=== PATIENT | female | born 1930 | race Caucasian/White ===

== ENCOUNTER 2017-01-21 12:40 | Inpatient (IN) | payer MEDICARE, OTHER ==
--- NOTE | 2017-01-21 13:11 | ED Physician Chart ---
ED Chief Complaint/HPI - Patient Information Date Seen:: 01/21/17 Time Seen:: 13:00 Chief Complaint:: PSYCHOSIS History of Present Illness:: THIS IS AN 86 YO FEMALE WHO WAS SENT HERE FROM THE [facility] FOR AN EVALUATION AND TREATMENT OF HER CONDITION. SHE HAS HAD OUTBURST OF ANGER INTERMITTENTLY. Allergies:: Allergies Allergy/AdvReac Type Severity Reaction Status Date / Time codeine AdvReac Verified 01/21/17 12:51 metronidazole AdvReac Verified 01/21/17 12:51 nitrofurantoin AdvReac Verified 01/21/17 12:51 Sulfa (Sulfonamide AdvReac Verified 01/21/17 12:51 Antibiotics) Vitals:: Vital Signs - 8 hr 01/21/17 12:51 Temp 99.0 F HR 76 RR 16 BP 142/88 O2 Sat % 97 Historian:: Patient, EMS, Medical Records Review:: Nurse's Note Reviewed, Transfer documents Reviewed ED Review of Systems - Review of Systems General/Constitutional: No fever, No chills, No weight loss, No weakness, No diaphoresis, No edema, No loss of appetite, Other (THIS PATIENT IS UNABLE TO GIVE A REVIEW OF SYSTEMS) Skin: No skin lesions, No rash, No bruising Head: No headache, No light-headedness Eyes: No loss of vision, No pain, No diplopia ENT: No earache, No nasal drainage, No sore throat, No tinnitus Neck: No neck pain, No swelling, No thyromegaly, No stiffness, No mass noted Cardio Vascular: No chest pain, No palpitations, No PND, No orthopnea, No edema Pulmonary: No SOB, No cough, No sputum, No wheezing GI: No nausea, No vomiting, No diarrhea, No pain, No melena, No hematochezia, No constipation, No hematemesis G/U: No dysuria, No frequency, No hematuria Musculoskeletal: No bone or joint pain, No back pain, No muscle pain Endocrine: No polyuria, No polydipsia Psychiatric: No prior psych history, No depression, No anxiety, No suicidal ideation Hematopoietic: No bruising, No lymphadenopathy Allergic/Immuno: No urticaria, No angioedema Neurological: No syncope, No focal symptoms, No weakness, No paresthesia, No headache, No seizure, No dizziness, No confusion, No vertigo ED Past Medical History - Past Medical History Obtainable: Yes Past Medical History: Dyslipidemia, Thyroid disorder, Arthritis, Dementia Family History: None Social History: Non Smoker, No Alcohol, No Drug Use Surgical History: None Psychiatricy History: Depression, Dementia Medication: Reviewed Family Medical History - Family Member Mother History Unknown: Yes ED Physical Exam - Physical Examination General/Constitutional: Awake, Well-developed, well-nourished, Alert, No distress, GCS 15, Non-toxic appearing, Ambulatory Other Gen/Cons comments:: CONFUSED Head: Atraumatic Eyes: Lids, conjuctiva normal, PERRL, EOMI Skin: Nl inspection, No rash, No skin lesions, No ecchymosis, Well hydrated, No lymphadenopathy ENMT: External ears, nose nl, Nasal exam nl, Lips, teeth, gums nl Neck: Nontender, Full ROM w/o pain, No JVD, No nuchal rigidity, No bruit, No mass, No stridor Respiratory: Nl effort/Exclusion, Clear to Auscultation, No Wheeze/Rhonchi/Rales Cardio Vascular: RRR, No murmur, gallop, rubs, NL S1 S2 GI: No tenderness/rebounding/guarding, No organomegaly, No hernia, Normal BS's, Nondistended, No mass/bruits, No McBurney tenderness : No CVA tenderness Extremities: No tenderness or effusion, Full ROM, normal strength in all extremities, No edema, Normal digits & nails Neuro/Psych: Alert/oriented, DTR's symmetric, Normal sensory exam, Normal motor strength, Judgement/insight normal, Mood normal, Normal gait, No focal deficits Misc: normal gait, Normal back, No paraspinal tenderness ED Labs/Radiology/EKG Results - EKG Interpretations EKG Time:: 12:51 Rate & Rhythm: RATE= 67 [place]: RIGHT AXIS ED Assessment - Assessment General Assessment: Abnormal Lab Results 01/21/17 01/21/17 01/21/17 13:00 13:00 13:00 WBC 6.2 RBC 4.78 Hgb 14.3 Hct 43.4 MCV 90.8 MCH 29.8 MCHC Differential 32.8 RDW 12.2 Plt Count 202 MPV 7.8 Neutrophils % 54.8 Lymphocytes % 28.3 Monocytes % 12.4 H Eosinophils % 3.9 Basophils % 0.6 PT 9.9 INR 0.95 Sodium Potassium Chloride Carbon Dioxide Anion Gap BUN Creatinine Est GFR ( Amer) Est GFR (Non-Af Amer) BUN/Creatinine Ratio Glucose Calcium Total Bilirubin AST ALT Alkaline Phosphatase Total Protein Albumin Globulin Albumin/Globulin Ratio Triglycerides 206 H Cholesterol 219 H LDL Cholesterol Direct 153 HDL Cholesterol 56 01/21/17 13:00 WBC RBC Hgb Hct MCV MCH MCHC Differential RDW Plt Count MPV Neutrophils % Lymphocytes % Monocytes % Eosinophils % Basophils % PT INR Sodium 136 Potassium 4.2 Chloride 103 Carbon Dioxide 28.5 Anion Gap 8.7 BUN 15 Creatinine 0.6 Est GFR ( Amer) TNP Est GFR (Non-Af Amer) TNP BUN/Creatinine Ratio 25.0 Glucose 81 Calcium 9.3 Total Bilirubin 0.7 AST 33 ALT 23 Alkaline Phosphatase 106 H Total Protein 7.1 Albumin < 1.5 L Globulin 5.6 Albumin/Globulin Ratio 0.3 L Triglycerides Cholesterol LDL Cholesterol Direct HDL Cholesterol ED Septic Shock - . Is Septic Shock (SBP<90, OR Lactate>4 mmol\L) present?: No - <6hrs of presentation: Vital Signs: Vital Signs - 8 hr 01/21/17 12:51 Temp 99.0 F HR 76 RR 16 BP 142/88 O2 Sat % 97 ED Reassessment (Disposition) - Reassessment Reassessment Condition:: Unchanged - Diagnosis Diagnosis:: PSYCHOSIS - Patient Disposition Admitting Medical Physician:: Regino Hinton Admitting Psych Physician:: Dana Perez Condition at Disposition:: Unchanged ED Discharge Plan - Patient Disposition Admit/Discharge/Transfer: Acute Care w/in this hosp Instructions: Psychosis
[2017-01-21 13:15] LABS: % BASOPHILS 0.6 % (0.0-2.0); % EOSINOPHILS 3.9 % (0.0-5.0); % LYMPHOCYTES 28.3 % (20.0-50.0); % MONOCYTES 12.4 % (2.0-10.0); % NEUTROPHILS 54.8 % (40.0-80.0); HEMATOCRIT 43.4 % (41.0-60); HEMOGLOBIN 14.3 gm/dL (12-16); MEAN CELL VOLUME 90.8 fl (81-100); MEAN CORPUSCULAR HEMOGLOBIN 29.8 pg (27.0-31.0); MEAN CORPUSCULAR HGB CONC 32.8 pg (28.0-36.0); MEAN PLATELET VOLUME 7.8 fl; NEUTROPHILE ABSOLUTE 3.4 Th/cmm (1.8-8.0); PLATELET COUNT 202 Th/cmm (150-400); RED BLOOD COUNT 4.78 Mil/cmm (3.80-5.20); RED CELL DISTRIBUTION WIDTH 12.2 % (11.5-20.0); WHITE BLOOD COUNT 6.2 Th/cmm (4.8-10.8)
[2017-01-21 13:29] LABS: INR 0.95 (0.5-1.4); PROTHROMBIN TIME (TEST) 9.9 SECONDS (9.5-11.5)
[2017-01-21 13:38] LABS: ALB/GLOB RATIO 0.3 (1.0-1.8); ALKALINE PHOSPHATASE 106 U/L (34-104); ANION GAP 8.7 (7.0-16.0); BILIRUBIN,TOTAL 0.7 mg/dL (0.3-1.0); BUN - UREA NITROGEN 15 mg/dL (7-25); CALCIUM SERUM 9.3 mg/dL (8.6-10.3); CARBON DIOXIDE 28.5 mEq/L (21.0-31.0); CHLORIDE 103 mEq/L (98-107); CHOLESTEROL 219 mg/dL (<200); CREATININE - SERUM 0.6 mg/dL (0.6-1.2); GLUCOSE 81 mg/dL (70-105); POTASSIUM SERUM 4.2 mEq/L (3.5-5.1); SGOT 33 U/L (13-39); SGPT/ALT 23 U/L (7-52); SODIUM SERUM 136 mEq/L (136-145); TRIGLYCERIDES 206 mg/dL (<150)
[2017-01-21 13:50] LABS: URINE BILIRUBIN NEGATIVE (NEGATIVE); URINE BLOOD NEGATIVE (NEGATIVE); URINE GLUCOSE (UA) NEGATIVE (NEGATIVE); URINE KETONE NEGATIVE (NEGATIVE); URINE PH 5.5 (4.6 - 8.0); URINE PROTEIN NEGATIVE (NEGATIVE); URINE UROBILINOGEN 0.2 E.U./dL (0.2 - 1.0)
[2017-01-21 14:00] LABS: URINE COLOR YELLOW
[2017-01-21 14:11] LABS: URINE BACTERIA OCCASIONAL /hpf (NONE SEEN); URINE EPITHELIAL CELLS FEW /lpf (FEW); URINE RBC 0-2 /hpf (0-5)
--- NOTE | 2017-01-21 15:00 | Diagnostic Imaging Report ---
Exam: Chest x-ray HISTORY: Shortness of breath. Findings: Frontal examination of chest was reviewed no prior studies available for comparison. Bony thorax is unremarkable for degenerative changes. The aortic arch calcified. No acute pulmonic infiltrates or effusions are noted. Multiple metallic clips are noted in left axilla. The costophrenic angles are clear, IMPRESSION: 1. No acute disease.
[2017-01-21] MEDS ORDERED: Magnesium Hydroxide (MOM) 30 mL UDC PO PRN (20:01)
[2017-01-21] MEDS: Lactulose 10 Gm/15 mL 30mL UDC PO SCH (23:22)
--- NOTE | 2017-01-22 01:31 | Psychosocial Evaluation ---
DATE OF SERVICE: 01/21/2017 IDENTIFYING DATA: The patient is an 86-year-old woman, resident of [facility]. Information obtained by directly interviewing the patient as well as reviewing the admission papers and they are reliable. JUSTIFICATION OF HOSPITALIZATION: The patient is admitted here for acute agitation. CHIEF COMPLAINT: "I do not know why they had to bring me in here." HISTORY OF PRESENT ILLNESS: This is the first psychiatric hospitalization to the [facility] for this patient who is reported to have been out of control and has been screaming and yelling and has been having difficult time to calm down. The patient has to referred. The patient was medically cleared through the Emergency Room and has been admitted over here for stabilization. PAST PSYCHIATRIC HISTORY: Details are not known. MEDICAL HISTORY: Physical examination requested to be done by Dr. Hinton. SUBSTANCE ABUSE HISTORY: None. PHYSICAL OR SEXUAL ABUSE HISTORY: None. SOCIAL HISTORY: The patient is a resident of the long term facility. MENTAL STATUS EXAMINATION: The patient is an 86-year-old woman looking her stated age, superficially cooperative. Eye contact is poor. Mood is noted to be irritable. Affect is constricted. Insight and judgment are noted to be impaired. Impulse control seems to be limited. The patient's coping skills are also noted to be limited. The patient has been having difficult time to participate in the consultation. The patient is having both short term as well as continuous churn buttermaker memory deficits. The patient is perseverating at this time. The patient is not able to recall the three objects that are mentioned to her after 5 minutes. The patient's attention span and concentration are noted to be poor. The patient is stating that she has to go back and she could not figure it out why she had to be brought over here. The patient is getting easily agitated and anxious. DIAGNOSTIC IMPRESSION: AXIS I: Psychotic disorder, not otherwise specified. AXIS IB: Depressive disorder, not otherwise specified. AXIS II: None. AXIS III: As per Dr. Hinton. IMMEDIATE TREATMENT PLAN: The patient is going to be observed on the inpatient unit, provided with supportive psychotherapy. Once the patient is stabilized, she is going to be discharged back to the facility. The patient is going to be closely monitored and medications are going to be addressed. [facility]# [id number]
[2017-01-22 02:24] VITALS: BP 137/70
[2017-01-22] MEDS ORDERED: VIT K2 PO SCH (09:00)
[2017-01-22] MEDS ORDERED: CHOLECALCIFEROL PO SCH (09:00)
[2017-01-22] MEDS ORDERED: [UNRECOGNIZED DRUG - OTHER] PO SCH (09:00)
[2017-01-22] MEDS ORDERED: [UNRECOGNIZED DRUG - REMARK] PO SCH (09:00)
[2017-01-22] MEDS: Aspirin 81mg Chewable Tab PO SCH (09:55)
[2017-01-22] MEDS: Potassium Chloride 10 mEq ER Tab PO SCH (09:59)
[2017-01-22] MEDS: Pantoprazole 40 mg EC Tab PO SCH (09:59)
[2017-01-22] MEDS: APAP/Oxycodone 5/325mg Oral Tab PO PRN (11:56)
--- NOTE | 2017-01-22 15:14 | History and Physical ---
History of Present Illness - HPI Chief Complaint: Increased in agitation HPI: Patient is a permanent resident of a residential. She was send to [facility] for evaluation due to increased in agitation. 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 GI: Report: No Pertinent Hx Psych: Report: Psychosis Musculoskeletal: Report: Weakness Rheumatologic: Report: No pertinent Hx Infectious Disease: Report: No Pertinent Hx Renal/: Report: No Pertinent Hx Endocrine: Report: No Pertinent Hx Dermatology: Report: No Pertinent Hx Family Medical History - Family Member Mother History Unknown: Yes Social History Smoke: No Alcohol: None Drugs: None Lives: [place] Domestic Violence: Negative - Medications Home Medications: Home Medication Medication Instructions Recorded Type Aspirin [Aspirin Chewable] 81 mg PO DAILY 01/21/17 History B6/FA/B12/Co Q10/Herb No.225 1 each PO DAILY 01/21/17 History [Healthy Heart Complex Tablet] Buspirone HCl 10 mg PO BID 01/21/17 History Cholecalciferol (Vitd3)/Vit K2 [D3 1 each PO DAILY 01/21/17 History + K2 Dots 1,000 Units Tab] Dexlansoprazole [Dexilant] 30 mg PO DAILY 01/21/17 History Docusate Sodium [Colace] 100 mg PO DAILY 01/21/17 History Duloxetine HCl [Cymbalta] 60 mg PO DAILY 01/21/17 History Folic Acid [Folate*] 1 mg PO DAILY 01/21/17 History Furosemide [Lasix] 20 mg PO DAILY 01/21/17 History Gabapentin [Neurontin] 600 mg PO QID 01/21/17 History Lactulose 10 gm PO HS 01/21/17 History Lorazepam [Ativan] 1 mg PO Q12H PRN 01/21/17 History Losartan Potassium [Cozaar] 25 mg PO DAILY 01/21/17 History Magnesium Hydroxide [Milk of 30 ml PO Q6HR PRN 01/21/17 History Magnesia] Methimazole [Tapazole] 5 mg PO DAILY 01/21/17 History Oxybutynin Chloride [Ditropan Xl] 5 mg PO HS 01/21/17 History Oxycodone HCl/Acetaminophen 1 tab PO QID PRN 01/21/17 History [Percocet 325 mg-10 mg*] Potassium Chloride [Klor-Con 10] 1 tab PO DAILY 01/21/17 History Primidone [Mysoline] 50 mg PO HS 01/21/17 History Propranolol HCl [Inderal] 20 mg PO BID 01/21/17 History rOPINIRole HCL [Requip] 1 mg PO HS 01/21/17 History - Allergies Allergies/Adverse Reactions: Allergies Allergy/AdvReac Type Severity Reaction Status Date / Time codeine AdvReac Verified 01/21/17 12:51 metronidazole AdvReac Verified 01/21/17 12:51 nitrofurantoin AdvReac Verified 01/21/17 12:51 Sulfa (Sulfonamide AdvReac Verified 01/21/17 12:51 Antibiotics) Review of Systems - Review of Systems Constitutional: Report: No Significant Eyes: Report: No Significant ENT: Report: No Significant Respiratory: Report: No Significant Cardiovascular: Report: No Significant Gastrointestinal: Report: No Significant Genitourinary: Report: No Significant Musculoskeletal: Report: Leg Pain Skin: Report: Other (Redness of both lower extremities) Neurological: Report: Weakness, Confusion Physical Exam - Physical Exam HEENT: Report: Ears Nose Throat within normal limits Neck: Report: Within normal limits Cardiovascular Systems: Report: Regular, Rate and Rhythm Respiratory: Report: Breath Sounds are within normal limits Abdomen: Report: Non-tender to palpation Back: Report: Inspection of back is within normal limits. Extremities: Report: Calf tenderness was noted. (There are redness of both lower extremities) Neuro/Psych: Report: Disoriented to name time or place, Depressed affect - Lab Results All Lab Results last 24 hours: Laboratory Last Values WBC 6.2 Th/cmm (4.8-10.8) 01/21/17 13:00 RBC 4.78 Mil/cmm (3.80-5.20) 01/21/17 13:00 Hgb 14.3 gm/dL (12-16) 01/21/17 13:00 Hct 43.4 % (41.0-60) 01/21/17 13:00 MCV 90.8 fl (81-100) 01/21/17 13:00 MCH 29.8 pg (27.0-31.0) 01/21/17 13:00 MCHC Differential 32.8 pg (28.0-36.0) 01/21/17 13:00 RDW 12.2 % (11.5-20.0) 01/21/17 13:00 Plt Count 202 Th/cmm (150-400) 01/21/17 13:00 MPV 7.8 fl 01/21/17 13:00 Neutrophils % 54.8 % (40.0-80.0) 01/21/17 13:00 Lymphocytes % 28.3 % (20.0-50.0) 01/21/17 13:00 Monocytes % 12.4 % (2.0-10.0) H 01/21/17 13:00 Eosinophils % 3.9 % (0.0-5.0) 01/21/17 13:00 Basophils % 0.6 % (0.0-2.0) 01/21/17 13:00 PT 9.9 SECONDS (9.5-11.5) 01/21/17 13:00 INR 0.95 (0.5-1.4) 01/21/17 13:00 Sodium 136 mEq/L (136-145) 01/21/17 13:00 Potassium 4.2 mEq/L (3.5-5.1) 01/21/17 13:00 Chloride 103 mEq/L (98-107) 01/21/17 13:00 Carbon Dioxide 28.5 mEq/L (21.0-31.0) 01/21/17 13:00 Anion Gap 8.7 (7.0-16.0) 01/21/17 13:00 BUN 15 mg/dL (7-25) 01/21/17 13:00 Creatinine 0.6 mg/dL (0.6-1.2) 01/21/17 13:00 Est GFR ( Amer) TNP 01/21/17 13:00 Est GFR (Non-Af Amer) TNP 01/21/17 13:00 BUN/Creatinine Ratio 25.0 01/21/17 13:00 Glucose 81 mg/dL (70-105) 01/21/17 13:00 Calcium 9.3 mg/dL (8.6-10.3) 01/21/17 13:00 Total Bilirubin 0.7 mg/dL (0.3-1.0) 01/21/17 13:00 AST 33 U/L (13-39) 01/21/17 13:00 ALT 23 U/L (7-52) 01/21/17 13:00 Alkaline Phosphatase 106 U/L (34-104) H 01/21/17 13:00 Troponin I ng/mL (0.01-0.05) 01/21/17 13:00 Total Protein 7.1 gm/dL (6.0-8.3) 01/21/17 13:00 Albumin < 1.5 gm/dL (3.7-5.3) L 01/21/17 13:00 Globulin 5.6 gm/dL 01/21/17 13:00 Albumin/Globulin Ratio 0.3 (1.0-1.8) L 01/21/17 13:00 Triglycerides 206 mg/dL (<150) H 01/21/17 13:00 Cholesterol 219 mg/dL (<200) H 01/21/17 13:00 LDL Cholesterol Direct 153 mg/dL (75-193) 01/21/17 13:00 HDL Cholesterol 56 mg/dL (23-92) 01/21/17 13:00 TSH 2.13 uIU/ml (0.34-5.60) 01/21/17 13:00 Urine Source CLEAN C 01/21/17 13:15 Urine Color YELLOW 01/21/17 13:15 Urine Clarity HAZY (CLEAR) 01/21/17 13:15 Urine pH 5.5 (4.6 - 8.0) 01/21/17 13:15 Ur Specific [place] 1.015 (1.005-1.030) 01/21/17 13:15 Urine Protein NEGATIVE mg/dL (NEGATIVE) 01/21/17 13:15 Urine Glucose (UA) NEGATIVE mg/dL (NEGATIVE) 01/21/17 13:15 Urine Ketones NEGATIVE mg/dL (NEGATIVE) 01/21/17 13:15 Urine Blood NEGATIVE (NEGATIVE) 01/21/17 13:15 Urine Nitrate NEGATIVE (NEGATIVE) 01/21/17 13:15 Urine Bilirubin NEGATIVE (NEGATIVE) 01/21/17 13:15 Urine Urobilinogen 0.2 E.U./dL (0.2 - 1.0) 01/21/17 13:15 Ur Leukocyte Esterase NEGATIVE (NEGATIVE) 01/21/17 13:15 Urine RBC 0-2 /hpf (0-5) 01/21/17 13:15 Urine WBC 2-5 /hpf (0-5) 01/21/17 13:15 Ur Epithelial Cells FEW /lpf (FEW) 01/21/17 13:15 Urine Bacteria OCCASIONAL /hpf (NONE SEEN) 01/21/17 13:15 - Assessment Assessment: Patint is awake, alert, calm, not oriented. She refer pain in both legs. DX: increased in agitation, Dementia, Dyslipemia, Hyperthyroidism by history,. - Plan Plan: Continue with SNF meds. Under psychiatric care. US of both legs is requested.
[2017-01-22] MEDS: Oxybutynin Chloride 5 mg ER Tab PO SCH (20:53)
[2017-01-22] MEDS: Lactulose 10 Gm/15 mL 30mL UDC PO SCH (20:53)
[2017-01-23 06:29] LABS: ALB/GLOB RATIO 1.3 (1.0-1.8); ALKALINE PHOSPHATASE 107 U/L (34-104); BILIRUBIN,TOTAL 0.8 mg/dL (0.3-1.0); BUN - UREA NITROGEN 15 mg/dL (7-25); CALCIUM SERUM 9.2 mg/dL (8.6-10.3); CARBON DIOXIDE 26.5 mEq/L (21.0-31.0); CHLORIDE 105 mEq/L (98-107); CREATININE - SERUM 0.6 mg/dL (0.6-1.2); GLUCOSE 108 mg/dL (70-105); POTASSIUM SERUM 3.5 mEq/L (3.5-5.1); SGOT 20 U/L (13-39); SGPT/ALT 25 U/L (7-52); SODIUM SERUM 138 mEq/L (136-145)
[2017-01-23 06:55] LABS: % BASOPHILS 0.5 % (0.0-2.0); % EOSINOPHILS 1.4 % (0.0-5.0); % LYMPHOCYTES 28.9 % (20.0-50.0); % MONOCYTES 11.3 % (2.0-10.0); % NEUTROPHILS 57.9 % (40.0-80.0); HEMATOCRIT 45.6 % (41.0-60); MEAN CELL VOLUME 90.7 fl (81-100); MEAN CORPUSCULAR HEMOGLOBIN 29.9 pg (27.0-31.0); MEAN CORPUSCULAR HGB CONC 32.9 pg (28.0-36.0); MEAN PLATELET VOLUME 8.2 fl; NEUTROPHILE ABSOLUTE 3.9 Th/cmm (1.8-8.0); PLATELET COUNT 196 Th/cmm (150-400); RED BLOOD COUNT 5.03 Mil/cmm (3.80-5.20); RED CELL DISTRIBUTION WIDTH 12.3 % (11.5-20.0); WHITE BLOOD COUNT 6.7 Th/cmm (4.8-10.8)
[2017-01-23] MEDS: Potassium Chloride 10 mEq ER Tab PO SCH (09:16)
[2017-01-23] MEDS: Pantoprazole 40 mg EC Tab PO SCH (09:17)
[2017-01-23] MEDS: Aspirin 81mg Chewable Tab PO SCH (09:19)
[2017-01-23] MEDS: APAP/Oxycodone 5/325mg Oral Tab PO PRN (09:51)
--- NOTE | 2017-01-23 10:19 | General Progress Note ---
Subjective - Review of Systems Service Date: 01/23/17 Subjective: I am fine Objective - Results Result Diagrams: 01/23/17 05:49 01/23/17 05:49 Recent Labs: Laboratory Last Values WBC 6.7 Th/cmm (4.8-10.8) 01/23/17 05:49 RBC 5.03 Mil/cmm (3.80-5.20) 01/23/17 05:49 Hgb 15.0 gm/dL (12-16) 01/23/17 05:49 Hct 45.6 % (41.0-60) 01/23/17 05:49 MCV 90.7 fl (81-100) 01/23/17 05:49 MCH 29.9 pg (27.0-31.0) 01/23/17 05:49 MCHC Differential 32.9 pg (28.0-36.0) 01/23/17 05:49 RDW 12.3 % (11.5-20.0) 01/23/17 05:49 Plt Count 196 Th/cmm (150-400) 01/23/17 05:49 MPV 8.2 fl 01/23/17 05:49 Neutrophils % 57.9 % (40.0-80.0) 01/23/17 05:49 Lymphocytes % 28.9 % (20.0-50.0) 01/23/17 05:49 Monocytes % 11.3 % (2.0-10.0) H 01/23/17 05:49 Eosinophils % 1.4 % (0.0-5.0) 01/23/17 05:49 Basophils % 0.5 % (0.0-2.0) 01/23/17 05:49 PT 9.9 SECONDS (9.5-11.5) 01/21/17 13:00 INR 0.95 (0.5-1.4) 01/21/17 13:00 Sodium 138 mEq/L (136-145) 01/23/17 05:49 Potassium 3.5 mEq/L (3.5-5.1) 01/23/17 05:49 Chloride 105 mEq/L (98-107) 01/23/17 05:49 Carbon Dioxide 26.5 mEq/L (21.0-31.0) 01/23/17 05:49 Anion Gap 10.0 (7.0-16.0) 01/23/17 05:49 BUN 15 mg/dL (7-25) 01/23/17 05:49 Creatinine 0.6 mg/dL (0.6-1.2) 01/23/17 05:49 Est GFR ( Amer) TNP 01/23/17 05:49 Est GFR (Non-Af Amer) TNP 01/23/17 05:49 BUN/Creatinine Ratio 25.0 01/23/17 05:49 Glucose 108 mg/dL (70-105) H 01/23/17 05:49 Calcium 9.2 mg/dL (8.6-10.3) 01/23/17 05:49 Total Bilirubin 0.8 mg/dL (0.3-1.0) 01/23/17 05:49 AST 20 U/L (13-39) 01/23/17 05:49 ALT 25 U/L (7-52) 01/23/17 05:49 Alkaline Phosphatase 107 U/L (34-104) H 01/23/17 05:49 Ammonia 49 umol/L (16-53) 01/23/17 05:49 Troponin I ng/mL (0.01-0.05) 01/21/17 13:00 Total Protein 6.9 gm/dL (6.0-8.3) 01/23/17 05:49 Albumin 3.9 gm/dL (3.7-5.3) 01/23/17 05:49 Globulin 3.0 gm/dL 01/23/17 05:49 Albumin/Globulin Ratio 1.3 (1.0-1.8) 01/23/17 05:49 Triglycerides 206 mg/dL (<150) H 01/21/17 13:00 Cholesterol 219 mg/dL (<200) H 01/21/17 13:00 LDL Cholesterol Direct 153 mg/dL (75-193) 01/21/17 13:00 HDL Cholesterol 56 mg/dL (23-92) 01/21/17 13:00 TSH 2.13 uIU/ml (0.34-5.60) 01/21/17 13:00 Urine Source CLEAN C 01/21/17 13:15 Urine Color YELLOW 01/21/17 13:15 Urine Clarity HAZY (CLEAR) 01/21/17 13:15 Urine pH 5.5 (4.6 - 8.0) 01/21/17 13:15 Ur Specific [place] 1.015 (1.005-1.030) 01/21/17 13:15 Urine Protein NEGATIVE mg/dL (NEGATIVE) 01/21/17 13:15 Urine Glucose (UA) NEGATIVE mg/dL (NEGATIVE) 01/21/17 13:15 Urine Ketones NEGATIVE mg/dL (NEGATIVE) 01/21/17 13:15 Urine Blood NEGATIVE (NEGATIVE) 01/21/17 13:15 Urine Nitrate NEGATIVE (NEGATIVE) 01/21/17 13:15 Urine Bilirubin NEGATIVE (NEGATIVE) 01/21/17 13:15 Urine Urobilinogen 0.2 E.U./dL (0.2 - 1.0) 01/21/17 13:15 Ur Leukocyte Esterase NEGATIVE (NEGATIVE) 01/21/17 13:15 Urine RBC 0-2 /hpf (0-5) 01/21/17 13:15 Urine WBC 2-5 /hpf (0-5) 01/21/17 13:15 Ur Epithelial Cells FEW /lpf (FEW) 01/21/17 13:15 Urine Bacteria OCCASIONAL /hpf (NONE SEEN) 01/21/17 13:15 - Physical Exam Vitals and I&O: Vital Signs Temp 98 F 01/23/17 07:00 Pulse 96 01/23/17 09:52 Resp 20 01/23/17 07:00 BP 165/76 01/23/17 09:52 Pulse Ox 97 01/23/17 07:00 Intake & Output 01/22/17 01/23/17 01/23/17 18:59 06:59 18:59 Intake Total 900 240 240 Balance 900 240 240 Intake: Oral 900 240 240 Other: # Voids 4 1 1 # Bowel Movements 0 Active Medications: Current Medications Aspirin (Aspirin Chewable) 81 mg PO DAILY SYBIL Stop: 03/23/17 08:59 Last Admin: 01/23/17 09:19 Dose: 81 mg Buspirone HCl (Buspar) 10 mg PO BID SYBIL Stop: 03/23/17 08:59 Last Admin: 01/23/17 09:16 Dose: 10 mg Docusate Sodium (Colace) 100 mg PO DAILY SYBIL Stop: 03/23/17 08:59 Last Admin: 01/23/17 09:17 Dose: 100 mg Duloxetine HCl (Cymbalta) 60 mg PO DAILY SYBIL Stop: 03/23/17 08:59 Last Admin: 01/23/17 09:17 Dose: 60 mg Folic Acid (Folate) 1 mg PO DAILY SYBIL Stop: 03/23/17 08:59 Last Admin: 01/23/17 09:16 Dose: 1 mg Furosemide (Lasix) 20 mg PO DAILY SYBIL Stop: 03/23/17 08:59 Last Admin: 01/23/17 09:16 Dose: 20 mg Gabapentin (Neurontin) 600 mg PO QID SYBIL Stop: 03/22/17 20:59 Last Admin: 01/23/17 09:18 Dose: 600 mg Lactulose (Cephulac) 10 gm PO HS SYBIL Stop: 03/22/17 20:59 Last Admin: 01/22/17 20:53 Dose: 10 gm Lorazepam (Ativan) 0.5 mg PO Q12H PRN; Protocol PRN Reason: Anxiety Stop: 03/22/17 20:00 Losartan Potassium (Cozaar) 25 mg PO DAILY SYBIL Stop: 03/23/17 08:59 Last Admin: 01/23/17 09:18 Dose: 25 mg Magnesium Hydroxide (Milk Of Magnesia) 30 ml PO Q6HR PRN PRN Reason: Constipation Stop: 03/22/17 20:00 Last Admin: 01/23/17 09:19 Dose: 30 ml Methimazole (Tapazole) 5 mg PO DAILY SYBIL Stop: 03/23/17 08:59 Last Admin: 01/23/17 09:18 Dose: 5 mg Oxybutynin Chloride (Ditropan Xl) 5 mg PO HS SYBIL Stop: 03/23/17 20:59 Last Admin: 01/22/17 20:53 Dose: 5 mg Oxycodone/Acetaminophen (Percocet 5/325mg Oral Tab) 1 tab PO QID PRN PRN Reason: Pain (Severe) Last Admin: 01/23/17 09:51 Dose: 1 tab Pantoprazole Sodium (Protonix) 40 mg PO DAILY SYBIL Stop: 03/23/17 08:59 Last Admin: 01/23/17 09:17 Dose: 40 mg Potassium Chloride (Klor-Con) 10 meq PO DAILY SYBIL Stop: 03/23/17 08:59 Last Admin: 01/23/17 09:16 Dose: 10 meq Primidone (Mysoline) 50 mg PO HS SYBIL Stop: 03/22/17 20:59 Last Admin: 01/22/17 20:53 Dose: 50 mg Propranolol HCl (Inderal) 20 mg PO BID SYBIL Stop: 03/23/17 08:59 Last Admin: 01/23/17 09:52 Dose: 20 mg Ropinirole HCl (Requip) 1 mg PO HS SYBIL Stop: 03/22/17 20:59 Last Admin: 01/22/17 20:54 Dose: 1 mg Zolpidem Tartrate (Ambien) 5 mg PO HS PRN PRN Reason: Insomnia Stop: 03/22/17 19:55 General: Alert, No acute distress, Other (Confused, not oriented) HEENT: Atraumatic Neck: Supple Cardiovascular: Regular rate Abdomen: Bowel sounds, Soft Extremities: Other (No edema) Neurological: Other (Unstable gait) Skin: Other (Warm and dry) Psych/Mental Status: Other (Confused, not oriented) Assessment/Plan - Assessment Assessment: Patint is awake, alert, calm, not oriented. DX: increased in agitation, Dementia, Dyslipemia, Hyperthyroidism by history,. - Plan Plan: Continue with SNF meds. Under psychiatric care. US of both legs is requested.
[2017-01-23] MEDS: Oxybutynin Chloride 5 mg ER Tab PO SCH (20:55)
[2017-01-23] MEDS: Lactulose 10 Gm/15 mL 30mL UDC PO SCH (20:55)
--- NOTE | 2017-01-23 21:05 | Progress Notes ---
DATE: 01/22/2017 Staff was spoken to. The patient is interviewed. Mood is noted to be depressed. Affect is constricted. The patient is reporting that she is in acute pain and could not figure it out what she can do. Patient has been having difficult time to cope with the stress. The patient is stating that the pain is the one that has been bothering her and the patient is reporting that she is very depressed because of the pain and multiple issues. Coping skills are noted to be very poor and patient is very depressed. The patient is currently on Cymbalta 60 mg at bedtime. PLAN: To continue the patient with that and I encouraged the patient to verbalize the concerns rather than to act out. JOB# [id number]
--- NOTE | 2017-01-24 07:49 | Diagnostic Imaging Report ---
Bilateral lower extremity DVT study HISTORY: Pain COMPARISON: None Technique: Longitudinal and transverse sonographic images of the bilateral lower extremity veins were obtained with doppler analysis. FINDINGS: There is normal compressibility, augmentation and phasicity of the bilateral common femoral, superficial femoral, popliteal, and posterior tibial veins. No thrombus is visualized. IMPRESSION: No evidence of thrombus within the bilateral lower extremity veins.
--- NOTE | 2017-01-24 07:52 | Diagnostic Imaging Report ---
Bilateral lower extremity arterial Doppler study HISTORY: Peripheral vascular disease COMPARISON: None Technique: Longitudinal and transverse sonographic images of the bilateral lower extremity arteries were obtained with doppler analysis. FINDINGS: Exam of the right side demonstrates mild generalized atherosclerotic vascular disease with primarily biphasic and triphasic flow demonstrated. No evidence of significant focal stenosis. Right [place]: 1 Exam of the left side demonstrates mild generalized atherosclerotic vascular disease with primarily biphasic and triphasic flow demonstrated. No evidence of significant focal stenosis. Left [place]: 1 IMPRESSION: Mild generalized atherosclerotic vascular disease. No evidence of hemodynamically significant stenosis.
--- NOTE | 2017-01-24 08:45 | General Progress Note ---
Subjective - Review of Systems Service Date: 01/24/17 Subjective: I am fine Objective - Results Result Diagrams: 01/23/17 05:49 01/23/17 05:49 Recent Labs: Laboratory Last Values WBC 6.7 Th/cmm (4.8-10.8) 01/23/17 05:49 RBC 5.03 Mil/cmm (3.80-5.20) 01/23/17 05:49 Hgb 15.0 gm/dL (12-16) 01/23/17 05:49 Hct 45.6 % (41.0-60) 01/23/17 05:49 MCV 90.7 fl (81-100) 01/23/17 05:49 MCH 29.9 pg (27.0-31.0) 01/23/17 05:49 MCHC Differential 32.9 pg (28.0-36.0) 01/23/17 05:49 RDW 12.3 % (11.5-20.0) 01/23/17 05:49 Plt Count 196 Th/cmm (150-400) 01/23/17 05:49 MPV 8.2 fl 01/23/17 05:49 Neutrophils % 57.9 % (40.0-80.0) 01/23/17 05:49 Lymphocytes % 28.9 % (20.0-50.0) 01/23/17 05:49 Monocytes % 11.3 % (2.0-10.0) H 01/23/17 05:49 Eosinophils % 1.4 % (0.0-5.0) 01/23/17 05:49 Basophils % 0.5 % (0.0-2.0) 01/23/17 05:49 PT 9.9 SECONDS (9.5-11.5) 01/21/17 13:00 INR 0.95 (0.5-1.4) 01/21/17 13:00 Sodium 138 mEq/L (136-145) 01/23/17 05:49 Potassium 3.5 mEq/L (3.5-5.1) 01/23/17 05:49 Chloride 105 mEq/L (98-107) 01/23/17 05:49 Carbon Dioxide 26.5 mEq/L (21.0-31.0) 01/23/17 05:49 Anion Gap 10.0 (7.0-16.0) 01/23/17 05:49 BUN 15 mg/dL (7-25) 01/23/17 05:49 Creatinine 0.6 mg/dL (0.6-1.2) 01/23/17 05:49 Est GFR ( Amer) TNP 01/23/17 05:49 Est GFR (Non-Af Amer) TNP 01/23/17 05:49 BUN/Creatinine Ratio 25.0 01/23/17 05:49 Glucose 108 mg/dL (70-105) H 01/23/17 05:49 Calcium 9.2 mg/dL (8.6-10.3) 01/23/17 05:49 Total Bilirubin 0.8 mg/dL (0.3-1.0) 01/23/17 05:49 AST 20 U/L (13-39) 01/23/17 05:49 ALT 25 U/L (7-52) 01/23/17 05:49 Alkaline Phosphatase 107 U/L (34-104) H 01/23/17 05:49 Ammonia 49 umol/L (16-53) 01/23/17 05:49 Troponin I ng/mL (0.01-0.05) 01/21/17 13:00 Total Protein 6.9 gm/dL (6.0-8.3) 01/23/17 05:49 Albumin 3.9 gm/dL (3.7-5.3) 01/23/17 05:49 Globulin 3.0 gm/dL 01/23/17 05:49 Albumin/Globulin Ratio 1.3 (1.0-1.8) 01/23/17 05:49 Triglycerides 206 mg/dL (<150) H 01/21/17 13:00 Cholesterol 219 mg/dL (<200) H 01/21/17 13:00 LDL Cholesterol Direct 153 mg/dL (75-193) 01/21/17 13:00 HDL Cholesterol 56 mg/dL (23-92) 01/21/17 13:00 TSH 2.13 uIU/ml (0.34-5.60) 01/21/17 13:00 Urine Source CLEAN C 01/21/17 13:15 Urine Color YELLOW 01/21/17 13:15 Urine Clarity HAZY (CLEAR) 01/21/17 13:15 Urine pH 5.5 (4.6 - 8.0) 01/21/17 13:[address] [place] 1.015 (1.005-1.030) 01/21/17 13:15 Urine Protein NEGATIVE mg/dL (NEGATIVE) 01/21/17 13:15 Urine Glucose (UA) NEGATIVE mg/dL (NEGATIVE) 01/21/17 13:15 Urine Ketones NEGATIVE mg/dL (NEGATIVE) 01/21/17 13:15 Urine Blood NEGATIVE (NEGATIVE) 01/21/17 13:15 Urine Nitrate NEGATIVE (NEGATIVE) 01/21/17 13:15 Urine Bilirubin NEGATIVE (NEGATIVE) 01/21/17 13:15 Urine Urobilinogen 0.2 E.U./dL (0.2 - 1.0) 01/21/17 13:15 Ur Leukocyte Esterase NEGATIVE (NEGATIVE) 01/21/17 13:15 Urine RBC 0-2 /hpf (0-5) 01/21/17 13:15 Urine WBC 2-5 /hpf (0-5) 01/21/17 13:15 Ur Epithelial Cells FEW /lpf (FEW) 01/21/17 13:15 Urine Bacteria OCCASIONAL /hpf (NONE SEEN) 01/21/17 13:15 - Physical Exam Vitals and I&O: Vital Signs Temp 98.1 F 01/24/17 06:34 Pulse 81 01/24/17 06:34 Resp 20 01/24/17 06:34 BP 139/76 01/24/17 06:34 Pulse Ox 99 01/24/17 06:34 Intake & Output 01/23/17 01/24/17 01/24/17 18:59 06:59 18:59 Intake Total 1140 360 Balance 1140 360 Intake: Oral 1140 360 Other: # Voids 4 2 # Bowel Movements 1 2 Stool Characteristics Liquid Active Medications: Current Medications Aspirin (Aspirin Chewable) 81 mg PO DAILY [facility] Stop: 03/23/17 08:59 Last Admin: 01/23/17 09:19 Dose: 81 mg Buspirone HCl (Buspar) 10 mg PO BID [facility] Stop: 03/23/17 08:59 Last Admin: 01/23/17 17:11 Dose: 10 mg Docusate Sodium (Colace) 100 mg PO DAILY [facility] Stop: 03/23/17 08:59 Last Admin: 01/23/17 09:17 Dose: 100 mg Duloxetine HCl (Cymbalta) 30 mg PO DAILY [facility] Stop: 03/23/17 08:59 Folic Acid (Folate) 1 mg PO DAILY [facility] Stop: 03/23/17 08:59 Last Admin: 01/23/17 09:16 Dose: 1 mg Furosemide (Lasix) 20 mg PO DAILY [facility] Stop: 03/23/17 08:59 Last Admin: 01/23/17 09:16 Dose: 20 mg Gabapentin (Neurontin) 600 mg PO TID [facility] Stop: 03/24/17 13:59 Last Admin: 01/23/17 20:55 Dose: 600 mg Lactulose (Cephulac) 10 gm PO HS [facility] Stop: 03/22/17 20:59 Last Admin: 01/23/17 20:55 Dose: Not Given Lorazepam (Ativan) 0.5 mg PO Q12H PRN; Protocol PRN Reason: Anxiety Stop: 03/22/17 20:00 Losartan Potassium (Cozaar) 25 mg PO DAILY [facility] Stop: 03/23/17 08:59 Last Admin: 01/23/17 09:18 Dose: 25 mg Magnesium Hydroxide (Milk Of Magnesia) 30 ml PO Q6HR PRN PRN Reason: Constipation Stop: 03/22/17 20:00 Last Admin: 01/23/17 09:19 Dose: 30 ml Methimazole (Tapazole) 5 mg PO DAILY [facility] Stop: 03/23/17 08:59 Last Admin: 01/23/17 09:18 Dose: 5 mg Mupirocin (Bactroban Oint) 1 appl NS BID [facility] Stop: 01/31/17 08:59 Oxybutynin Chloride (Ditropan Xl) 5 mg PO HS [facility] Stop: 03/23/17 20:59 Last Admin: 01/23/17 20:55 Dose: 5 mg Oxycodone/Acetaminophen (Percocet 5/325mg Oral Tab) 1 tab PO QID PRN PRN Reason: Pain (Severe) Last Admin: 01/23/17 09:51 Dose: 1 tab Pantoprazole Sodium (Protonix) 40 mg PO DAILY [facility] Stop: 03/23/17 08:59 Last Admin: 01/23/17 09:17 Dose: 40 mg Potassium Chloride (Klor-Con) 10 meq PO DAILY [facility] Stop: 03/23/17 08:59 Last Admin: 01/23/17 09:16 Dose: 10 meq Primidone (Mysoline) 50 mg PO HS [facility] Stop: 03/22/17 20:59 Last Admin: 01/23/17 20:55 Dose: 50 mg Propranolol HCl (Inderal) 20 mg PO BID [facility] Stop: 03/23/17 08:59 Last Admin: 01/23/17 17:10 Dose: 20 mg Ropinirole HCl (Requip) 1 mg PO HS [facility] Stop: 03/22/17 20:59 Last Admin: 01/23/17 20:55 Dose: 1 mg Zolpidem Tartrate (Ambien) 5 mg PO HS PRN PRN Reason: Insomnia Stop: 03/22/17 19:55 Last Admin: 01/23/17 20:57 Dose: 5 mg General: Alert, No acute distress, Other (Confused, not oriented) HEENT: Atraumatic Neck: Supple Cardiovascular: Regular rate Abdomen: Bowel sounds, Soft Extremities: Other (edema) Neurological: Other (Unstable gait) Skin: Other (Warm and dry) Psych/Mental Status: Other (Confused, not oriented) Assessment/Plan - Assessment Assessment: Patint is awake, alert, calm, not oriented. Bilateral US shows no DVT and generalized arteriosclerosis. DX: increased in agitation, Dementia, Dyslipemia, Hyperthyroidism by history,. - Plan Plan: Continue with SNF meds. Under psychiatric care. US of both legs is requested.
[2017-01-24] MEDS: Aspirin 81mg Chewable Tab PO SCH (09:48)
[2017-01-24] MEDS: Potassium Chloride 10 mEq ER Tab PO SCH (09:49)
[2017-01-24] MEDS: Pantoprazole 40 mg EC Tab PO SCH (09:49)
--- NOTE | 2017-01-24 10:41 | Progress Notes ---
DATE: 01/23/2017 PSYCHIATRIC PROGRESS NOTE SUBJECTIVE: Staff was spoken to. The patient is interviewed. Mood is noted to be irritable. Affect is constricted. Insight and judgment at this time are noted to be still impaired. Impulse control seems to be limited. The patient has been having difficult time. The patient is stating that the medications are making her too drowsy and hence the Neurontin has been decreased to 600 mg 3 times a day and also the Cymbalta to 30 mg on a daily basis. The patient is going to be provided with supportive psychotherapy. The patient is having Doppler studies of the lower extremities because she has been having a lot of pain in the lower extremities. PLAN: The patient is going to be discharged to the family when the patient is going to be stabilized. [facility]# [id number]
[2017-01-24] MEDS: Lactulose 10 Gm/15 mL 30mL UDC PO SCH (20:39)
[2017-01-24] MEDS: Oxybutynin Chloride 5 mg ER Tab PO SCH (20:39)
--- NOTE | 2017-01-25 03:48 | Progress Notes ---
DATE: 01/24/2017 PSYCHIATRIC PROGRESS NOTE SUBJECTIVE: Staff was spoken to. The patient is interviewed. Mood is noted to be irritable. Affect is constricted. The patient does report that she is in pain. Coping skills at this time are noted to be poor. Insight and judgment are noted to be impaired. No side effects to the medications are noted. The patient has been having difficult time to cope with the stress. ASSESSMENT: The patient is still impulsive. PLAN: To continue the patient with the current medications. I encouraged the patient to verbalize the concerns rather than to act out. JOB# [id number]
[2017-01-25] MEDS: APAP/Oxycodone 5/325mg Oral Tab PO PRN ×2 (06:51→18:02)
--- NOTE | 2017-01-25 09:15 | General Progress Note ---
Subjective - Review of Systems Service Date: 01/25/17 Subjective: I am fine Objective - Results Result Diagrams: 01/23/17 05:49 01/23/17 05:49 Recent Labs: Laboratory Last Values WBC 6.7 Th/cmm (4.8-10.8) 01/23/17 05:49 RBC 5.03 Mil/cmm (3.80-5.20) 01/23/17 05:49 Hgb 15.0 gm/dL (12-16) 01/23/17 05:49 Hct 45.6 % (41.0-60) 01/23/17 05:49 MCV 90.7 fl (81-100) 01/23/17 05:49 MCH 29.9 pg (27.0-31.0) 01/23/17 05:49 MCHC Differential 32.9 pg (28.0-36.0) 01/23/17 05:49 RDW 12.3 % (11.5-20.0) 01/23/17 05:49 Plt Count 196 Th/cmm (150-400) 01/23/17 05:49 MPV 8.2 fl 01/23/17 05:49 Neutrophils % 57.9 % (40.0-80.0) 01/23/17 05:49 Lymphocytes % 28.9 % (20.0-50.0) 01/23/17 05:49 Monocytes % 11.3 % (2.0-10.0) H 01/23/17 05:49 Eosinophils % 1.4 % (0.0-5.0) 01/23/17 05:49 Basophils % 0.5 % (0.0-2.0) 01/23/17 05:49 PT 9.9 SECONDS (9.5-11.5) 01/21/17 13:00 INR 0.95 (0.5-1.4) 01/21/17 13:00 Sodium 138 mEq/L (136-145) 01/23/17 05:49 Potassium 3.5 mEq/L (3.5-5.1) 01/23/17 05:49 Chloride 105 mEq/L (98-107) 01/23/17 05:49 Carbon Dioxide 26.5 mEq/L (21.0-31.0) 01/23/17 05:49 Anion Gap 10.0 (7.0-16.0) 01/23/17 05:49 BUN 15 mg/dL (7-25) 01/23/17 05:49 Creatinine 0.6 mg/dL (0.6-1.2) 01/23/17 05:49 Est GFR ( Amer) TNP 01/23/17 05:49 Est GFR (Non-Af Amer) TNP 01/23/17 05:49 BUN/Creatinine Ratio 25.0 01/23/17 05:49 Glucose 108 mg/dL (70-105) H 01/23/17 05:49 Calcium 9.2 mg/dL (8.6-10.3) 01/23/17 05:49 Total Bilirubin 0.8 mg/dL (0.3-1.0) 01/23/17 05:49 AST 20 U/L (13-39) 01/23/17 05:49 ALT 25 U/L (7-52) 01/23/17 05:49 Alkaline Phosphatase 107 U/L (34-104) H 01/23/17 05:49 Ammonia 49 umol/L (16-53) 01/23/17 05:49 Troponin I ng/mL (0.01-0.05) 01/21/17 13:00 Total Protein 6.9 gm/dL (6.0-8.3) 01/23/17 05:49 Albumin 3.9 gm/dL (3.7-5.3) 01/23/17 05:49 Globulin 3.0 gm/dL 01/23/17 05:49 Albumin/Globulin Ratio 1.3 (1.0-1.8) 01/23/17 05:49 Triglycerides 206 mg/dL (<150) H 01/21/17 13:00 Cholesterol 219 mg/dL (<200) H 01/21/17 13:00 LDL Cholesterol Direct 153 mg/dL (75-193) 01/21/17 13:00 HDL Cholesterol 56 mg/dL (23-92) 01/21/17 13:00 TSH 2.13 uIU/ml (0.34-5.60) 01/21/17 13:00 Urine Source CLEAN C 01/21/17 13:15 Urine Color YELLOW 01/21/17 13:15 Urine Clarity HAZY (CLEAR) 01/21/17 13:15 Urine pH 5.5 (4.6 - 8.0) 01/21/17 13:15 Ur Specific [place] 1.015 (1.005-1.030) 01/21/17 13:15 Urine Protein NEGATIVE mg/dL (NEGATIVE) 01/21/17 13:15 Urine Glucose (UA) NEGATIVE mg/dL (NEGATIVE) 01/21/17 13:15 Urine Ketones NEGATIVE mg/dL (NEGATIVE) 01/21/17 13:15 Urine Blood NEGATIVE (NEGATIVE) 01/21/17 13:15 Urine Nitrate NEGATIVE (NEGATIVE) 01/21/17 13:15 Urine Bilirubin NEGATIVE (NEGATIVE) 01/21/17 13:15 Urine Urobilinogen 0.2 E.U./dL (0.2 - 1.0) 01/21/17 13:15 Ur Leukocyte Esterase NEGATIVE (NEGATIVE) 01/21/17 13:15 Urine RBC 0-2 /hpf (0-5) 01/21/17 13:15 Urine WBC 2-5 /hpf (0-5) 01/21/17 13:15 Ur Epithelial Cells FEW /lpf (FEW) 01/21/17 13:15 Urine Bacteria OCCASIONAL /hpf (NONE SEEN) 01/21/17 13:15 - Physical Exam Vitals and I&O: Vital Signs Temp 98.6 F 01/25/17 06:22 Pulse 94 01/25/17 06:22 Resp 18 01/25/17 06:22 BP 143/75 01/25/17 06:22 Pulse Ox 94 01/25/17 06:22 Intake & Output 01/24/17 01/25/17 01/25/17 18:59 06:59 18:59 Intake Total 1600 240 Balance 1600 240 Intake: Oral 1600 240 Other: # Voids 4 3 # Bowel Movements 1 0 Stool Characteristics Liquid Active Medications: Current Medications Aspirin (Aspirin Chewable) 81 mg PO DAILY [facility] Stop: 03/23/17 08:59 Last Admin: 01/24/17 09:48 Dose: 81 mg Buspirone HCl (Buspar) 10 mg PO BID [facility] Stop: 03/23/17 08:59 Last Admin: 01/24/17 18:17 Dose: 10 mg Docusate Sodium (Colace) 100 mg PO DAILY [facility] Stop: 03/23/17 08:59 Last Admin: 01/24/17 17:20 Dose: Not Given Duloxetine HCl (Cymbalta) 30 mg PO DAILY [facility] Stop: 03/23/17 08:59 Last Admin: 01/24/17 09:49 Dose: 30 mg Folic Acid (Folate) 1 mg PO DAILY [facility] Stop: 03/23/17 08:59 Last Admin: 01/24/17 09:51 Dose: 1 mg Furosemide (Lasix) 20 mg PO DAILY [facility] Stop: 03/23/17 08:59 Last Admin: 01/24/17 09:50 Dose: 20 mg Gabapentin (Neurontin) 600 mg PO TID [facility] Stop: 03/24/17 13:59 Last Admin: 01/24/17 20:39 Dose: 600 mg Lactulose (Cephulac) 10 gm PO HS [facility] Stop: 03/22/17 20:59 Last Admin: 01/24/17 20:39 Dose: Not Given Lorazepam (Ativan) 0.5 mg PO Q12H PRN; Protocol PRN Reason: Anxiety Stop: 03/22/17 20:00 Losartan Potassium (Cozaar) 25 mg PO DAILY [facility] Stop: 03/23/17 08:59 Last Admin: 01/24/17 09:52 Dose: 25 mg Magnesium Hydroxide (Milk Of Magnesia) 30 ml PO Q6HR PRN PRN Reason: Constipation Stop: 03/22/17 20:00 Last Admin: 01/23/17 09:19 Dose: 30 ml Methimazole (Tapazole) 5 mg PO DAILY [facility] Stop: 03/23/17 08:59 Last Admin: 01/24/17 09:49 Dose: 5 mg Mupirocin (Bactroban Oint) 1 appl NS BID [facility] Stop: 01/31/17 12:59 Last Admin: 01/24/17 18:16 Dose: 1 appl Oxybutynin Chloride (Ditropan Xl) 5 mg PO HS [facility] Stop: 03/23/17 20:59 Last Admin: 01/24/17 20:39 Dose: 5 mg Oxycodone/Acetaminophen (Percocet 5/325mg Oral Tab) 1 tab PO QID PRN PRN Reason: Pain (Severe) Last Admin: 01/25/17 06:51 Dose: 1 tab Pantoprazole Sodium (Protonix) 40 mg PO DAILY [facility] Stop: 03/23/17 08:59 Last Admin: 01/24/17 09:49 Dose: 40 mg Potassium Chloride (Klor-Con) 10 meq PO DAILY [facility] Stop: 03/23/17 08:59 Last Admin: 01/24/17 09:49 Dose: 10 meq Primidone (Mysoline) 50 mg PO HS [facility] Stop: 03/22/17 20:59 Last Admin: 01/24/17 20:39 Dose: 50 mg Propranolol HCl (Inderal) 20 mg PO BID [facility] Stop: 03/23/17 08:59 Last Admin: 01/24/17 18:15 Dose: 20 mg Ropinirole HCl (Requip) 1 mg PO HS [facility] Stop: 03/22/17 20:59 Last Admin: 01/24/17 20:39 Dose: 1 mg Zolpidem Tartrate (Ambien) 5 mg PO HS PRN PRN Reason: Insomnia Stop: 03/22/17 19:55 Last Admin: 01/24/17 23:03 Dose: 5 mg General: Alert, No acute distress, Other (Confused, not oriented) HEENT: Atraumatic Neck: Supple Cardiovascular: Regular rate Abdomen: Bowel sounds, Soft Extremities: Other (edema) Neurological: Other (Unstable gait) Skin: Other (Warm and dry) Psych/Mental Status: Other (Confused, not oriented) Assessment/Plan - Assessment Assessment: Patint is awake, alert, calm, not oriented. Bilateral US shows no DVT and generalized arteriosclerosis. DX: increased in agitation, Dementia, Dyslipemia, Hyperthyroidism by history,. - Plan Plan: Continue with SNF meds. Under psychiatric care. US of both legs is requested.
[2017-01-25] MEDS: Potassium Chloride 10 mEq ER Tab PO SCH (09:34)
[2017-01-25] MEDS: Pantoprazole 40 mg EC Tab PO SCH (09:35)
[2017-01-25] MEDS: Aspirin 81mg Chewable Tab PO SCH (09:36)
[2017-01-25] MEDS: Lactulose 10 Gm/15 mL 30mL UDC PO SCH (20:56)
[2017-01-25] MEDS: Oxybutynin Chloride 5 mg ER Tab PO SCH (20:57)
--- NOTE | 2017-01-26 04:11 | Progress Notes ---
DATE: 01/25/2017 SUBJECTIVE: Staff was spoken to. The patient is interviewed. Mood is noted to be irritable. Affect is constricted. Insight and judgment are noted to be still impaired. Impulse control seems to be poor. The patient is reported to have been having serious sundowning symptoms. The patient has been having difficult time to cope with this stress at this time. ASSESSMENT: The patient is still impulsive. PLAN: To continue the patient with the current medications. I encouraged the patient to verbalize the concerns rather than to act out. JOB# [id number]
--- NOTE | 2017-01-26 08:57 | General Progress Note ---
Subjective - Review of Systems Service Date: 01/26/17 Subjective: Sleeping but arousable Objective - Results Result Diagrams: 01/23/17 05:49 01/23/17 05:49 Recent Labs: Laboratory Last Values WBC 6.7 Th/cmm (4.8-10.8) 01/23/17 05:49 RBC 5.03 Mil/cmm (3.80-5.20) 01/23/17 05:49 Hgb 15.0 gm/dL (12-16) 01/23/17 05:49 Hct 45.6 % (41.0-60) 01/23/17 05:49 MCV 90.7 fl (81-100) 01/23/17 05:49 MCH 29.9 pg (27.0-31.0) 01/23/17 05:49 MCHC Differential 32.9 pg (28.0-36.0) 01/23/17 05:49 RDW 12.3 % (11.5-20.0) 01/23/17 05:49 Plt Count 196 Th/cmm (150-400) 01/23/17 05:49 MPV 8.2 fl 01/23/17 05:49 Neutrophils % 57.9 % (40.0-80.0) 01/23/17 05:49 Lymphocytes % 28.9 % (20.0-50.0) 01/23/17 05:49 Monocytes % 11.3 % (2.0-10.0) H 01/23/17 05:49 Eosinophils % 1.4 % (0.0-5.0) 01/23/17 05:49 Basophils % 0.5 % (0.0-2.0) 01/23/17 05:49 PT 9.9 SECONDS (9.5-11.5) 01/21/17 13:00 INR 0.95 (0.5-1.4) 01/21/17 13:00 Sodium 138 mEq/L (136-145) 01/23/17 05:49 Potassium 3.5 mEq/L (3.5-5.1) 01/23/17 05:49 Chloride 105 mEq/L (98-107) 01/23/17 05:49 Carbon Dioxide 26.5 mEq/L (21.0-31.0) 01/23/17 05:49 Anion Gap 10.0 (7.0-16.0) 01/23/17 05:49 BUN 15 mg/dL (7-25) 01/23/17 05:49 Creatinine 0.6 mg/dL (0.6-1.2) 01/23/17 05:49 Est GFR ( Amer) TNP 01/23/17 05:49 Est GFR (Non-Af Amer) TNP 01/23/17 05:49 BUN/Creatinine Ratio 25.0 01/23/17 05:49 Glucose 108 mg/dL (70-105) H 01/23/17 05:49 Calcium 9.2 mg/dL (8.6-10.3) 01/23/17 05:49 Total Bilirubin 0.8 mg/dL (0.3-1.0) 01/23/17 05:49 AST 20 U/L (13-39) 01/23/17 05:49 ALT 25 U/L (7-52) 01/23/17 05:49 Alkaline Phosphatase 107 U/L (34-104) H 01/23/17 05:49 Ammonia 49 umol/L (16-53) 01/23/17 05:49 Troponin I ng/mL (0.01-0.05) 01/21/17 13:00 Total Protein 6.9 gm/dL (6.0-8.3) 01/23/17 05:49 Albumin 3.9 gm/dL (3.7-5.3) 01/23/17 05:49 Globulin 3.0 gm/dL 01/23/17 05:49 Albumin/Globulin Ratio 1.3 (1.0-1.8) 01/23/17 05:49 Triglycerides 206 mg/dL (<150) H 01/21/17 13:00 Cholesterol 219 mg/dL (<200) H 01/21/17 13:00 LDL Cholesterol Direct 153 mg/dL (75-193) 01/21/17 13:00 HDL Cholesterol 56 mg/dL (23-92) 01/21/17 13:00 TSH 2.13 uIU/ml (0.34-5.60) 01/21/17 13:00 Urine Source CLEAN C 01/21/17 13:15 Urine Color YELLOW 01/21/17 13:15 Urine Clarity HAZY (CLEAR) 01/21/17 13:15 Urine pH 5.5 (4.6 - 8.0) 01/21/17 13:15 Ur Specific [place] 1.015 (1.005-1.030) 01/21/17 13:15 Urine Protein NEGATIVE mg/dL (NEGATIVE) 01/21/17 13:15 Urine Glucose (UA) NEGATIVE mg/dL (NEGATIVE) 01/21/17 13:15 Urine Ketones NEGATIVE mg/dL (NEGATIVE) 01/21/17 13:15 Urine Blood NEGATIVE (NEGATIVE) 01/21/17 13:15 Urine Nitrate NEGATIVE (NEGATIVE) 01/21/17 13:15 Urine Bilirubin NEGATIVE (NEGATIVE) 01/21/17 13:15 Urine Urobilinogen 0.2 E.U./dL (0.2 - 1.0) 01/21/17 13:15 Ur Leukocyte Esterase NEGATIVE (NEGATIVE) 01/21/17 13:15 Urine RBC 0-2 /hpf (0-5) 01/21/17 13:15 Urine WBC 2-5 /hpf (0-5) 01/21/17 13:15 Ur Epithelial Cells FEW /lpf (FEW) 01/21/17 13:15 Urine Bacteria OCCASIONAL /hpf (NONE SEEN) 01/21/17 13:15 - Physical Exam Vitals and I&O: Vital Signs Temp 98.6 F 01/26/17 06:23 Pulse 64 01/26/17 06:23 Resp 19 01/26/17 06:23 BP 133/64 01/26/17 06:23 Pulse Ox 95 01/26/17 06:23 Intake & Output 01/25/17 01/26/17 01/26/17 18:59 06:59 18:59 Intake Total 500 240 Balance 500 240 Intake: Oral 500 240 Other: # Voids 3 3 # Bowel Movements 1 0 Active Medications: Current Medications Aspirin (Aspirin Chewable) 81 mg PO DAILY [facility] Stop: 03/23/17 08:59 Last Admin: 01/25/17 09:36 Dose: 81 mg Buspirone HCl (Buspar) 10 mg PO BID [facility] Stop: 03/23/17 08:59 Last Admin: 01/25/17 18:01 Dose: 10 mg Docusate Sodium (Colace) 100 mg PO DAILY [facility] Stop: 03/23/17 08:59 Last Admin: 01/25/17 09:36 Dose: 100 mg Duloxetine HCl (Cymbalta) 30 mg PO DAILY [facility] Stop: 03/23/17 08:59 Last Admin: 01/25/17 09:35 Dose: 30 mg Folic Acid (Folate) 1 mg PO DAILY [facility] Stop: 03/23/17 08:59 Last Admin: 01/25/17 09:35 Dose: 1 mg Furosemide (Lasix) 20 mg PO DAILY [facility] Stop: 03/23/17 08:59 Last Admin: 01/25/17 09:36 Dose: 20 mg Gabapentin (Neurontin) 600 mg PO TID [facility] Stop: 03/24/17 13:59 Last Admin: 01/25/17 20:57 Dose: 600 mg Lactulose (Cephulac) 10 gm PO HS [facility] Stop: 03/22/17 20:59 Last Admin: 01/25/17 20:56 Dose: 10 gm Lorazepam (Ativan) 0.5 mg PO Q12H PRN; Protocol PRN Reason: Anxiety Stop: 03/22/17 20:00 Losartan Potassium (Cozaar) 25 mg PO DAILY [facility] Stop: 03/23/17 08:59 Last Admin: 01/25/17 09:36 Dose: 25 mg Magnesium Hydroxide (Milk Of Magnesia) 30 ml PO Q6HR PRN PRN Reason: Constipation Stop: 03/22/17 20:00 Last Admin: 01/23/17 09:19 Dose: 30 ml Methimazole (Tapazole) 5 mg PO DAILY [facility] Stop: 03/23/17 08:59 Last Admin: 01/25/17 09:35 Dose: 5 mg Mupirocin (Bactroban Oint) 1 appl NS BID [facility] Stop: 01/31/17 12:59 Last Admin: 01/25/17 18:01 Dose: 1 appl Oxybutynin Chloride (Ditropan Xl) 5 mg PO HS [facility] Stop: 03/23/17 20:59 Last Admin: 01/25/17 20:57 Dose: 5 mg Oxycodone/Acetaminophen (Percocet 5/325mg Oral Tab) 1 tab PO QID PRN PRN Reason: Pain (Severe) Last Admin: 01/25/17 18:02 Dose: 1 tab Pantoprazole Sodium (Protonix) 40 mg PO DAILY SYBIL Stop: 03/23/17 08:59 Last Admin: 01/25/17 09:35 Dose: 40 mg Potassium Chloride (Klor-Con) 10 meq PO DAILY SYBIL Stop: 03/23/17 08:59 Last Admin: 01/25/17 09:34 Dose: 10 meq Primidone (Mysoline) 50 mg PO HS SYBIL Stop: 03/22/17 20:59 Last Admin: 01/25/17 20:57 Dose: 50 mg Propranolol HCl (Inderal) 20 mg PO BID SYBIL Stop: 03/23/17 08:59 Last Admin: 01/25/17 18:01 Dose: 20 mg Ropinirole HCl (Requip) 1 mg PO HS SYBIL Stop: 03/22/17 20:59 Last Admin: 01/25/17 20:57 Dose: 1 mg Zolpidem Tartrate (Ambien) 5 mg PO HS PRN PRN Reason: Insomnia Stop: 03/22/17 19:55 Last Admin: 01/26/17 00:01 Dose: 5 mg General: Alert, No acute distress, Other (Confused, not oriented) HEENT: Atraumatic Neck: Supple Cardiovascular: Regular rate Abdomen: Bowel sounds, Soft Extremities: Other (edema) Neurological: Other (Unstable gait) Skin: Other (Warm and dry) Psych/Mental Status: Other (Confused, not oriented) Assessment/Plan - Assessment Assessment: Patint is awake, alert, calm, not oriented. Bilateral US shows no DVT and generalized arteriosclerosis. DX: increased in agitation, Dementia, Dyslipemia, Hyperthyroidism by history,. - Plan Plan: Continue with SNF meds. Under psychiatric care. US of both legs is requested.
[2017-01-26] MEDS: Pantoprazole 40 mg EC Tab PO SCH (09:57)
[2017-01-26] MEDS: Potassium Chloride 10 mEq ER Tab PO SCH (09:58)
[2017-01-26] MEDS: Aspirin 81mg Chewable Tab PO SCH (09:58)
[2017-01-26] MEDS: Lactulose 10 Gm/15 mL 30mL UDC PO SCH (21:11)
[2017-01-26] MEDS: Oxybutynin Chloride 5 mg ER Tab PO SCH (21:11)
--- NOTE | 2017-01-27 06:06 | Progress Notes ---
DATE: 01/26/2017 PSYCHIATRIC PROGRESS NOTE SUBJECTIVE: Staff was spoken to. The patient is interviewed. Mood is noted to be irritable. Affect is constricted. The patient is stating that she is depressed and she cannot help herself. The patient has been reluctant to get out of the bed. The patient has been stating that she is having so much of pain in her knees. ASSESSMENT: The patient is still depressed. PLAN: To continue the patient with Cymbalta. I encouraged the patient to verbalize the concerns rather than to act out. JOB# [id number]
--- NOTE | 2017-01-27 09:08 | General Progress Note ---
Subjective - Review of Systems Service Date: 01/27/17 Subjective: I have pain in my hand Objective - Results Result Diagrams: 01/23/17 05:49 01/23/17 05:49 Recent Labs: Laboratory Last Values WBC 6.7 Th/cmm (4.8-10.8) 01/23/17 05:49 RBC 5.03 Mil/cmm (3.80-5.20) 01/23/17 05:49 Hgb 15.0 gm/dL (12-16) 01/23/17 05:49 Hct 45.6 % (41.0-60) 01/23/17 05:49 MCV 90.7 fl (81-100) 01/23/17 05:49 MCH 29.9 pg (27.0-31.0) 01/23/17 05:49 MCHC Differential 32.9 pg (28.0-36.0) 01/23/17 05:49 RDW 12.3 % (11.5-20.0) 01/23/17 05:49 Plt Count 196 Th/cmm (150-400) 01/23/17 05:49 MPV 8.2 fl 01/23/17 05:49 Neutrophils % 57.9 % (40.0-80.0) 01/23/17 05:49 Lymphocytes % 28.9 % (20.0-50.0) 01/23/17 05:49 Monocytes % 11.3 % (2.0-10.0) H 01/23/17 05:49 Eosinophils % 1.4 % (0.0-5.0) 01/23/17 05:49 Basophils % 0.5 % (0.0-2.0) 01/23/17 05:49 PT 9.9 SECONDS (9.5-11.5) 01/21/17 13:00 INR 0.95 (0.5-1.4) 01/21/17 13:00 Sodium 138 mEq/L (136-145) 01/23/17 05:49 Potassium 3.5 mEq/L (3.5-5.1) 01/23/17 05:49 Chloride 105 mEq/L (98-107) 01/23/17 05:49 Carbon Dioxide 26.5 mEq/L (21.0-31.0) 01/23/17 05:49 Anion Gap 10.0 (7.0-16.0) 01/23/17 05:49 BUN 15 mg/dL (7-25) 01/23/17 05:49 Creatinine 0.6 mg/dL (0.6-1.2) 01/23/17 05:49 Est GFR ( Amer) TNP 01/23/17 05:49 Est GFR (Non-Af Amer) TNP 01/23/17 05:49 BUN/Creatinine Ratio 25.0 01/23/17 05:49 Glucose 108 mg/dL (70-105) H 01/23/17 05:49 Calcium 9.2 mg/dL (8.6-10.3) 01/23/17 05:49 Total Bilirubin 0.8 mg/dL (0.3-1.0) 01/23/17 05:49 AST 20 U/L (13-39) 01/23/17 05:49 ALT 25 U/L (7-52) 01/23/17 05:49 Alkaline Phosphatase 107 U/L (34-104) H 01/23/17 05:49 Ammonia 49 umol/L (16-53) 01/23/17 05:49 Troponin I ng/mL (0.01-0.05) 01/21/17 13:00 Total Protein 6.9 gm/dL (6.0-8.3) 01/23/17 05:49 Albumin 3.9 gm/dL (3.7-5.3) 01/23/17 05:49 Globulin 3.0 gm/dL 01/23/17 05:49 Albumin/Globulin Ratio 1.3 (1.0-1.8) 01/23/17 05:49 Triglycerides 206 mg/dL (<150) H 01/21/17 13:00 Cholesterol 219 mg/dL (<200) H 01/21/17 13:00 LDL Cholesterol Direct 153 mg/dL (75-193) 01/21/17 13:00 HDL Cholesterol 56 mg/dL (23-92) 01/21/17 13:00 TSH 2.13 uIU/ml (0.34-5.60) 01/21/17 13:00 Urine Source CLEAN C 01/21/17 13:15 Urine Color YELLOW 01/21/17 13:15 Urine Clarity HAZY (CLEAR) 01/21/17 13:15 Urine pH 5.5 (4.6 - 8.0) 01/21/17 13:15 Ur Specific [place] 1.015 (1.005-1.030) 01/21/17 13:15 Urine Protein NEGATIVE mg/dL (NEGATIVE) 01/21/17 13:15 Urine Glucose (UA) NEGATIVE mg/dL (NEGATIVE) 01/21/17 13:15 Urine Ketones NEGATIVE mg/dL (NEGATIVE) 01/21/17 13:15 Urine Blood NEGATIVE (NEGATIVE) 01/21/17 13:15 Urine Nitrate NEGATIVE (NEGATIVE) 01/21/17 13:15 Urine Bilirubin NEGATIVE (NEGATIVE) 01/21/17 13:15 Urine Urobilinogen 0.2 E.U./dL (0.2 - 1.0) 01/21/17 13:15 Ur Leukocyte Esterase NEGATIVE (NEGATIVE) 01/21/17 13:15 Urine RBC 0-2 /hpf (0-5) 01/21/17 13:15 Urine WBC 2-5 /hpf (0-5) 01/21/17 13:15 Ur Epithelial Cells FEW /lpf (FEW) 01/21/17 13:15 Urine Bacteria OCCASIONAL /hpf (NONE SEEN) 01/21/17 13:15 - Physical Exam Vitals and I&O: Vital Signs Temp 97.9 F 01/27/17 06:30 Pulse 90 01/27/17 06:30 Resp 18 01/27/17 06:30 BP 128/70 01/27/17 06:30 Pulse Ox 98 01/27/17 06:30 Intake & Output 01/26/17 01/27/17 01/27/17 18:59 06:59 18:59 Intake Total 120 Balance 120 Intake: Oral 120 Other: # Voids 3 Active Medications: Current Medications Aspirin (Aspirin Chewable) 81 mg PO DAILY [facility] Stop: 03/23/17 08:59 Last Admin: 01/26/17 09:58 Dose: 81 mg Buspirone HCl (Buspar) 10 mg PO BID [facility] Stop: 03/23/17 08:59 Last Admin: 01/26/17 17:45 Dose: 10 mg Docusate Sodium (Colace) 100 mg PO DAILY [facility] Stop: 03/23/17 08:59 Last Admin: 01/26/17 11:33 Dose: Not Given Duloxetine HCl (Cymbalta) 30 mg PO DAILY [facility] Stop: 03/23/17 08:59 Last Admin: 01/26/17 09:58 Dose: 30 mg Folic Acid (Folate) 1 mg PO DAILY [facility] Stop: 03/23/17 08:59 Last Admin: 01/26/17 09:58 Dose: 1 mg Furosemide (Lasix) 20 mg PO DAILY [facility] Stop: 03/23/17 08:59 Last Admin: 01/26/17 09:58 Dose: 20 mg Gabapentin (Neurontin) 600 mg PO TID [facility] Stop: 03/24/17 13:59 Last Admin: 01/26/17 21:12 Dose: 600 mg Lactulose (Cephulac) 10 gm PO HS [facility] Stop: 03/22/17 20:59 Last Admin: 01/26/17 21:11 Dose: 10 gm Lorazepam (Ativan) 0.5 mg PO Q12H PRN; Protocol PRN Reason: Anxiety Stop: 03/22/17 20:00 Losartan Potassium (Cozaar) 25 mg PO DAILY [facility] Stop: 03/23/17 08:59 Last Admin: 01/26/17 09:58 Dose: 25 mg Magnesium Hydroxide (Milk Of Magnesia) 30 ml PO Q6HR PRN PRN Reason: Constipation Stop: 03/22/17 20:00 Last Admin: 01/23/17 09:19 Dose: 30 ml Methimazole (Tapazole) 5 mg PO DAILY [facility] Stop: 03/23/17 08:59 Last Admin: 01/26/17 09:58 Dose: 5 mg Mupirocin (Bactroban Oint) 1 appl NS BID [facility] Stop: 01/31/17 12:59 Last Admin: 01/26/17 17:46 Dose: 1 appl Oxybutynin Chloride (Ditropan Xl) 5 mg PO HS [facility] Stop: 03/23/17 20:59 Last Admin: 01/26/17 21:11 Dose: 5 mg Oxycodone/Acetaminophen (Percocet 5/325mg Oral Tab) 1 tab PO QID PRN PRN Reason: Pain (Severe) Last Admin: 01/25/17 18:02 Dose: 1 tab Pantoprazole Sodium (Protonix) 40 mg PO DAILY [facility] Stop: 03/23/17 08:59 Last Admin: 09/20/17 09:57 Dose: 40 mg Potassium Chloride (Klor-Con) 10 meq PO DAILY [facility] Stop: 03/23/17 08:59 Last Admin: 01/26/17 09:58 Dose: 10 meq Primidone (Mysoline) 50 mg PO HS [facility] Stop: 03/22/17 20:59 Last Admin: 01/26/17 21:11 Dose: 50 mg Propranolol HCl (Inderal) 20 mg PO BID [facility] Stop: 03/23/17 08:59 Last Admin: 01/26/17 17:46 Dose: 20 mg Ropinirole HCl (Requip) 1 mg PO HS [facility] Stop: 03/22/17 20:59 Last Admin: 01/26/17 21:24 Dose: Not Given Zolpidem Tartrate (Ambien) 5 mg PO HS PRN PRN Reason: Insomnia Stop: 03/22/17 19:55 Last Admin: 01/26/17 21:12 Dose: 5 mg General: Alert, No acute distress, Other (Confused, not oriented) HEENT: Atraumatic Neck: Supple Cardiovascular: Regular rate Abdomen: Bowel sounds, Soft Extremities: Other (edema) Neurological: Other (Unstable gait) Skin: Other (Warm and dry) Psych/Mental Status: Other (Confused, not oriented) Assessment/Plan - Assessment Assessment: Patint is awake, alert, calm, not oriented. Bilateral US shows no DVT and generalized arteriosclerosis. DX: increased in agitation, Dementia, Dyslipemia, Hyperthyroidism by history,. - Plan Plan: Continue with SNF meds. Under psychiatric care. US of both legs is requested.
[2017-01-27] MEDS: Aspirin 81mg Chewable Tab PO SCH (09:18)
[2017-01-27] MEDS: Potassium Chloride 10 mEq ER Tab PO SCH (09:18)
[2017-01-27] MEDS: Pantoprazole 40 mg EC Tab PO SCH (09:19)
[2017-01-27] MEDS: APAP/Oxycodone 5/325mg Oral Tab PO PRN ×2 (10:20→16:21)
[2017-01-27] MEDS: Lactulose 10 Gm/15 mL 30mL UDC PO SCH (20:36)
[2017-01-27] MEDS: Oxybutynin Chloride 5 mg ER Tab PO SCH (20:37)
--- NOTE | 2017-01-27 23:14 | Progress Notes ---
DATE: 01/27/2017 SUBJECTIVE: Staff was spoken to. The patient is interviewed. Mood is noted to be irritable. Affect is constricted. The patient is still depressed. The patient is stating that she cannot do anything by herself and she needs some help. The patient's coping skills are noted to be very poor. The patient is reluctant to get into the groups. ASSESSMENT: The patient is still depressed. PLAN: To continue the patient with supportive therapy. I encouraged the patient to verbalize the concerns rather than to act out. JOB# [id number]
[2017-01-28] MEDS: Aspirin 81mg Chewable Tab PO SCH (08:57)
[2017-01-28] MEDS: Potassium Chloride 10 mEq ER Tab PO SCH (09:00)
[2017-01-28] MEDS: Pantoprazole 40 mg EC Tab PO SCH (09:00)
--- NOTE | 2017-01-28 09:09 | General Progress Note ---
Subjective - Review of Systems Service Date: 01/28/17 Subjective: I have pain in my hand Objective - Results Result Diagrams: 01/23/17 05:49 01/23/17 05:49 Recent Labs: Laboratory Last Values WBC 6.7 Th/cmm (4.8-10.8) 01/23/17 05:49 RBC 5.03 Mil/cmm (3.80-5.20) 01/23/17 05:49 Hgb 15.0 gm/dL (12-16) 01/23/17 05:49 Hct 45.6 % (41.0-60) 01/23/17 05:49 MCV 90.7 fl (81-100) 01/23/17 05:49 MCH 29.9 pg (27.0-31.0) 01/23/17 05:49 MCHC Differential 32.9 pg (28.0-36.0) 01/23/17 05:49 RDW 12.3 % (11.5-20.0) 01/23/17 05:49 Plt Count 196 Th/cmm (150-400) 01/23/17 05:49 MPV 8.2 fl 01/23/17 05:49 Neutrophils % 57.9 % (40.0-80.0) 01/23/17 05:49 Lymphocytes % 28.9 % (20.0-50.0) 01/23/17 05:49 Monocytes % 11.3 % (2.0-10.0) H 01/23/17 05:49 Eosinophils % 1.4 % (0.0-5.0) 01/23/17 05:49 Basophils % 0.5 % (0.0-2.0) 01/23/17 05:49 PT 9.9 SECONDS (9.5-11.5) 01/21/17 13:00 INR 0.95 (0.5-1.4) 01/21/17 13:00 Sodium 138 mEq/L (136-145) 01/23/17 05:49 Potassium 3.5 mEq/L (3.5-5.1) 01/23/17 05:49 Chloride 105 mEq/L (98-107) 01/23/17 05:49 Carbon Dioxide 26.5 mEq/L (21.0-31.0) 01/23/17 05:49 Anion Gap 10.0 (7.0-16.0) 01/23/17 05:49 BUN 15 mg/dL (7-25) 01/23/17 05:49 Creatinine 0.6 mg/dL (0.6-1.2) 01/23/17 05:49 Est GFR ( Amer) TNP 01/23/17 05:49 Est GFR (Non-Af Amer) TNP 01/23/17 05:49 BUN/Creatinine Ratio 25.0 01/23/17 05:49 Glucose 108 mg/dL (70-105) H 01/23/17 05:49 Calcium 9.2 mg/dL (8.6-10.3) 01/23/17 05:49 Total Bilirubin 0.8 mg/dL (0.3-1.0) 01/23/17 05:49 AST 20 U/L (13-39) 01/23/17 05:49 ALT 25 U/L (7-52) 01/23/17 05:49 Alkaline Phosphatase 107 U/L (34-104) H 01/23/17 05:49 Ammonia 49 umol/L (16-53) 01/23/17 05:49 Troponin I ng/mL (0.01-0.05) 01/21/17 13:00 Total Protein 6.9 gm/dL (6.0-8.3) 01/23/17 05:49 Albumin 3.9 gm/dL (3.7-5.3) 01/23/17 05:49 Globulin 3.0 gm/dL 01/23/17 05:49 Albumin/Globulin Ratio 1.3 (1.0-1.8) 01/23/17 05:49 Triglycerides 206 mg/dL (<150) H 01/21/17 13:00 Cholesterol 219 mg/dL (<200) H 01/21/17 13:00 LDL Cholesterol Direct 153 mg/dL (75-193) 01/21/17 13:00 HDL Cholesterol 56 mg/dL (23-92) 01/21/17 13:00 TSH 2.13 uIU/ml (0.34-5.60) 01/21/17 13:00 Urine Source CLEAN C 01/21/17 13:15 Urine Color YELLOW 01/21/17 13:15 Urine Clarity HAZY (CLEAR) 01/21/17 13:15 Urine pH 5.5 (4.6 - 8.0) 01/21/17 13:15 Ur Specific [place] 1.015 (1.005-1.030) 01/21/17 13:15 Urine Protein NEGATIVE mg/dL (NEGATIVE) 01/21/17 13:15 Urine Glucose (UA) NEGATIVE mg/dL (NEGATIVE) 01/21/17 13:15 Urine Ketones NEGATIVE mg/dL (NEGATIVE) 01/21/17 13:15 Urine Blood NEGATIVE (NEGATIVE) 01/21/17 13:15 Urine Nitrate NEGATIVE (NEGATIVE) 01/21/17 13:15 Urine Bilirubin NEGATIVE (NEGATIVE) 01/21/17 13:15 Urine Urobilinogen 0.2 E.U./dL (0.2 - 1.0) 01/21/17 13:15 Ur Leukocyte Esterase NEGATIVE (NEGATIVE) 01/21/17 13:15 Urine RBC 0-2 /hpf (0-5) 01/21/17 13:15 Urine WBC 2-5 /hpf (0-5) 01/21/17 13:15 Ur Epithelial Cells FEW /lpf (FEW) 01/21/17 13:15 Urine Bacteria OCCASIONAL /hpf (NONE SEEN) 01/21/17 13:15 - Physical Exam Vitals and I&O: Vital Signs Temp 98 F 01/28/17 06:22 Pulse 91 01/28/17 09:01 Resp 19 01/28/17 06:22 BP 109/69 01/28/17 09:01 Pulse Ox 98 01/28/17 06:22 Intake & Output 01/27/17 01/28/17 01/28/17 18:59 06:59 18:59 Intake Total 600 120 Balance 600 120 Intake: Oral 600 120 Other: # Voids 2 3 Active Medications: Current Medications Aspirin (Aspirin Chewable) 81 mg PO DAILY [facility] Stop: 03/23/17 08:59 Last Admin: 01/28/17 08:57 Dose: 81 mg Buspirone HCl (Buspar) 10 mg PO BID [facility] Stop: 03/23/17 08:59 Last Admin: 01/28/17 08:57 Dose: 10 mg Docusate Sodium (Colace) 100 mg PO DAILY [facility] Stop: 03/23/17 08:59 Last Admin: 01/28/17 08:57 Dose: 100 mg Duloxetine HCl (Cymbalta) 30 mg PO DAILY [facility] Stop: 03/23/17 08:59 Last Admin: 01/28/17 08:57 Dose: 30 mg Folic Acid (Folate) 1 mg PO DAILY [facility] Stop: 03/23/17 08:59 Last Admin: 01/28/17 08:57 Dose: 1 mg Furosemide (Lasix) 20 mg PO DAILY [facility] Stop: 03/23/17 08:59 Last Admin: 01/28/17 09:00 Dose: Not Given Gabapentin (Neurontin) 600 mg PO TID [facility] Stop: 03/24/17 13:59 Last Admin: 01/28/17 08:58 Dose: 600 mg Lactulose (Cephulac) 10 gm PO HS [facility] Stop: 03/22/17 20:59 Last Admin: 01/27/17 20:36 Dose: 10 gm Lorazepam (Ativan) 0.5 mg PO Q12H PRN; Protocol PRN Reason: Anxiety Stop: 03/22/17 20:00 Losartan Potassium (Cozaar) 25 mg PO DAILY [facility] Stop: 03/23/17 08:59 Last Admin: 01/28/17 08:59 Dose: Not Given Magnesium Hydroxide (Milk Of Magnesia) 30 ml PO Q6HR PRN PRN Reason: Constipation Stop: 03/22/17 20:00 Last Admin: 01/23/17 09:19 Dose: 30 ml Methimazole (Tapazole) 5 mg PO DAILY [facility] Stop: 03/23/17 08:59 Last Admin: 01/28/17 09:00 Dose: 5 mg Mupirocin (Bactroban Oint) 1 appl NS BID [facility] Stop: 01/31/17 12:59 Last Admin: 01/27/17 16:17 Dose: 1 appl Oxybutynin Chloride (Ditropan Xl) 5 mg PO HS [facility] Stop: 03/23/17 20:59 Last Admin: 01/27/17 20:37 Dose: 5 mg Oxycodone/Acetaminophen (Percocet 5/325mg Oral Tab) 1 tab PO QID PRN PRN Reason: Pain (Severe) Last Admin: 01/27/17 16:21 Dose: 1 tab Pantoprazole Sodium (Protonix) 40 mg PO DAILY [facility] Stop: 03/23/17 08:59 Last Admin: 01/28/17 09:00 Dose: 40 mg Potassium Chloride (Klor-Con) 10 meq PO DAILY [facility] Stop: 03/23/17 08:59 Last Admin: 01/28/17 09:00 Dose: 10 meq Primidone (Mysoline) 50 mg PO HS [facility] Stop: 03/22/17 20:59 Last Admin: 01/27/17 20:37 Dose: 50 mg Propranolol HCl (Inderal) 20 mg PO BID [facility] Stop: 03/23/17 08:59 Last Admin: 01/28/17 09:01 Dose: Not Given Ropinirole HCl (Requip) 1 mg PO HS [facility] Stop: 03/22/17 20:59 Last Admin: 01/27/17 20:37 Dose: 1 mg Zolpidem Tartrate (Ambien) 5 mg PO HS PRN PRN Reason: Insomnia Stop: 03/22/17 19:55 Last Admin: 01/27/17 20:37 Dose: 5 mg General: Alert, No acute distress, Other (Confused, not oriented) HEENT: Atraumatic Neck: Supple Cardiovascular: Regular rate Abdomen: Bowel sounds, Soft Extremities: Other (edema) Neurological: Other (Unstable gait) Skin: Other (Warm and dry) Psych/Mental Status: Other (Confused, not oriented) Assessment/Plan - Assessment Assessment: Patint is awake, alert, calm, not oriented. Bilateral US shows no DVT and generalized arteriosclerosis. DX: increased in agitation, Dementia, Dyslipemia, Hyperthyroidism by history,. - Plan Plan: Continue with SNF meds. Under psychiatric care. US of both legs is requested. Nutritional Asmnt/Malnutr-PDOC - Dietary Evaluation Malnutrition Findings (Please click <Entered> for more info): Nutritional Asmnt/Malnutrition Start: 01/27/17 09: 38 Text: Status: Complete Freq: Document 01/27/17 09:38 GSUN (Rec: 01/27/17 09:51 GSUN [id number]) Nutritional Asmnt/Malnutrition Patient General Information Nutritional Screening Diagnosis Diagnosis Psychotic disorder NOS, depressive disorder NOS Pertinent Medical Hx/Surgical Hx CAD, dementia, psychosis, weakness Subjective Information Late entry. 86 year old female from SNF. Visited pt during meal time. Pt was talkative, appeared suspicious and very forgetful. Pt unable to recall past meals at [facility] nor provide much meaningful nutrition information. Most teeth intact. Pt appeared overweight, no muscle fat wasting noted. Avg PO intake 75-100% of meals past 3 days, meeting nutritional needs. Spoke to imaging analyst JAE Lopez stated pt is able to self feed and walk, no nutritinoal concerns at this time. Current Diet Order/ Nutrition Support Regular Pertinent Medications Colace, Folate, Lasix, Cephulac, MOM, Protonix, Klor- Con Pertinent Labs 01/21: triglycerides 206H, cholesterol 219H Nutritional Hx/Data Height 1.65 m Height (Calculated Centimeters) 165.1 Current Weight (lbs) 65.771 kg Weight (Calculated Kilograms) 65.8 Weight (Calculated Grams) 38146.9 [place] Body Weight 125 Weight Status Approriate GI Symptoms Skin Integrity/Comment: Aram 19. Skin intact. Current %PO Good (75-100%) Estimated Nutritional Goals BEE in Kcals: Using Current wt Calories/Kcals/Kg CBW 145lb/65.9kg Kcals Calculated 1648-1977kcal (25-30kcal/kg) Protein: Using Current wt Protein Calculated 66g (1g/kg) Fluid: ml 1648-1977ml (1ml/kcal) Nutritional Problem 1. Problem Problem No nutritinoal problem at this time. Intervention/Recommendation Comments 1. Continue with current diet order. Avg PO intake is adeqaute. Expected Outcomes/Goals Expected Outcomes/Goals 1. PO intake continue to meet at least 75% of estimated nutritional needs.
[2017-01-28] MEDS: APAP/Oxycodone 5/325mg Oral Tab PO PRN ×2 (16:05→23:33)
[2017-01-28] MEDS: Oxybutynin Chloride 5 mg ER Tab PO SCH (20:34)
[2017-01-28] MEDS: Lactulose 10 Gm/15 mL 30mL UDC PO SCH (20:35)
--- NOTE | 2017-01-29 05:37 | Progress Notes ---
DATE: 01/28/2017 SUBJECTIVE: The staff was spoken to. The patient is interviewed. Mood is noted to be irritable. Affect is constricted. The patient is stating that she is getting frustrated. She is in too much of pain in her knees. Coping skills are noted to be very poor. Mood is irritable and depressed. The patient is not presenting with any suicidal ideation today. ASSESSMENT: The patient is still depressed. PLAN: To continue the patient with supportive therapy and followup. [facility]# [id number]
[2017-01-29] MEDS: Potassium Chloride 10 mEq ER Tab PO SCH (08:08)
[2017-01-29] MEDS: APAP/Oxycodone 5/325mg Oral Tab PO PRN (08:09)
[2017-01-29] MEDS: Pantoprazole 40 mg EC Tab PO SCH (08:10)
[2017-01-29] MEDS: Aspirin 81mg Chewable Tab PO SCH (08:11)
--- NOTE | 2017-01-29 13:02 | General Progress Note ---
Subjective - Review of Systems Service Date: 01/29/17 Subjective: I am fine Objective - Results Result Diagrams: 01/23/17 05:49 01/23/17 05:49 Recent Labs: Laboratory Last Values WBC 6.7 Th/cmm (4.8-10.8) 01/23/17 05:49 RBC 5.03 Mil/cmm (3.80-5.20) 01/23/17 05:49 Hgb 15.0 gm/dL (12-16) 01/23/17 05:49 Hct 45.6 % (41.0-60) 01/23/17 05:49 MCV 90.7 fl (81-100) 01/23/17 05:49 MCH 29.9 pg (27.0-31.0) 01/23/17 05:49 MCHC Differential 32.9 pg (28.0-36.0) 01/23/17 05:49 RDW 12.3 % (11.5-20.0) 01/23/17 05:49 Plt Count 196 Th/cmm (150-400) 01/23/17 05:49 MPV 8.2 fl 01/23/17 05:49 Neutrophils % 57.9 % (40.0-80.0) 01/23/17 05:49 Lymphocytes % 28.9 % (20.0-50.0) 01/23/17 05:49 Monocytes % 11.3 % (2.0-10.0) H 01/23/17 05:49 Eosinophils % 1.4 % (0.0-5.0) 01/23/17 05:49 Basophils % 0.5 % (0.0-2.0) 01/23/17 05:49 PT 9.9 SECONDS (9.5-11.5) 01/21/17 13:00 INR 0.95 (0.5-1.4) 01/21/17 13:00 Sodium 138 mEq/L (136-145) 01/23/17 05:49 Potassium 3.5 mEq/L (3.5-5.1) 01/23/17 05:49 Chloride 105 mEq/L (98-107) 01/23/17 05:49 Carbon Dioxide 26.5 mEq/L (21.0-31.0) 01/23/17 05:49 Anion Gap 10.0 (7.0-16.0) 01/23/17 05:49 BUN 15 mg/dL (7-25) 01/23/17 05:49 Creatinine 0.6 mg/dL (0.6-1.2) 01/23/17 05:49 Est GFR ( Amer) TNP 01/23/17 05:49 Est GFR (Non-Af Amer) TNP 01/23/17 05:49 BUN/Creatinine Ratio 25.0 01/23/17 05:49 Glucose 108 mg/dL (70-105) H 01/23/17 05:49 Calcium 9.2 mg/dL (8.6-10.3) 01/23/17 05:49 Total Bilirubin 0.8 mg/dL (0.3-1.0) 01/23/17 05:49 AST 20 U/L (13-39) 01/23/17 05:49 ALT 25 U/L (7-52) 01/23/17 05:49 Alkaline Phosphatase 107 U/L (34-104) H 01/23/17 05:49 Ammonia 49 umol/L (16-53) 01/23/17 05:49 Troponin I ng/mL (0.01-0.05) 01/21/17 13:00 Total Protein 6.9 gm/dL (6.0-8.3) 01/23/17 05:49 Albumin 3.9 gm/dL (3.7-5.3) 01/23/17 05:49 Globulin 3.0 gm/dL 01/23/17 05:49 Albumin/Globulin Ratio 1.3 (1.0-1.8) 01/23/17 05:49 Triglycerides 206 mg/dL (<150) H 01/21/17 13:00 Cholesterol 219 mg/dL (<200) H 01/21/17 13:00 LDL Cholesterol Direct 153 mg/dL (75-193) 01/21/17 13:00 HDL Cholesterol 56 mg/dL (23-92) 01/21/17 13:00 TSH 2.13 uIU/ml (0.34-5.60) 01/21/17 13:00 Urine Source CLEAN C 01/21/17 13:15 Urine Color YELLOW 01/21/17 13:15 Urine Clarity HAZY (CLEAR) 01/21/17 13:15 Urine pH 5.5 (4.6 - 8.0) 01/21/17 13:15 Ur Specific [place] 1.015 (1.005-1.030) 01/21/17 13:15 Urine Protein NEGATIVE mg/dL (NEGATIVE) 01/21/17 13:15 Urine Glucose (UA) NEGATIVE mg/dL (NEGATIVE) 01/21/17 13:15 Urine Ketones NEGATIVE mg/dL (NEGATIVE) 01/21/17 13:15 Urine Blood NEGATIVE (NEGATIVE) 01/21/17 13:15 Urine Nitrate NEGATIVE (NEGATIVE) 01/21/17 13:15 Urine Bilirubin NEGATIVE (NEGATIVE) 01/21/17 13:15 Urine Urobilinogen 0.2 E.U./dL (0.2 - 1.0) 01/21/17 13:15 Ur Leukocyte Esterase NEGATIVE (NEGATIVE) 01/21/17 13:15 Urine RBC 0-2 /hpf (0-5) 01/21/17 13:15 Urine WBC 2-5 /hpf (0-5) 01/21/17 13:15 Ur Epithelial Cells FEW /lpf (FEW) 01/21/17 13:15 Urine Bacteria OCCASIONAL /hpf (NONE SEEN) 01/21/17 13:15 - Physical Exam Vitals and I&O: Vital Signs Temp 97.6 F 01/29/17 06:26 Pulse 98 01/29/17 08:14 Resp 18 01/29/17 06:26 BP 126/58 01/29/17 08:14 Pulse Ox 97 01/29/17 06:26 Intake & Output 01/28/17 01/29/17 01/29/17 18:59 06:59 18:59 Intake Total 600 360 Balance 600 360 Intake: Oral 600 360 Other: # Voids 2 3 Stool Characteristics Soft Formed Active Medications: Current Medications Aspirin (Aspirin Chewable) 81 mg PO DAILY [facility] Stop: 03/23/17 08:59 Last Admin: 01/29/17 08:11 Dose: 81 mg Docusate Sodium (Colace) 100 mg PO DAILY [facility] Stop: 03/23/17 08:59 Last Admin: 01/29/17 08:10 Dose: 100 mg Duloxetine HCl (Cymbalta) 30 mg PO DAILY [facility] Stop: 03/23/17 08:59 Last Admin: 01/29/17 08:13 Dose: 30 mg Folic Acid (Folate) 1 mg PO DAILY [facility] Stop: 03/23/17 08:59 Last Admin: 01/29/17 08:12 Dose: 1 mg Furosemide (Lasix) 20 mg PO DAILY [facility] Stop: 03/23/17 08:59 Last Admin: 01/29/17 08:12 Dose: 20 mg Gabapentin (Neurontin) 600 mg PO TID [facility] Stop: 03/24/17 13:59 Last Admin: 01/29/17 08:11 Dose: 600 mg Lactulose (Cephulac) 10 gm PO HS [facility] Stop: 03/22/17 20:59 Last Admin: 01/28/17 20:35 Dose: 10 gm Lorazepam (Ativan) 0.5 mg PO Q12H PRN; Protocol PRN Reason: Anxiety Stop: 03/22/17 20:00 Losartan Potassium (Cozaar) 25 mg PO DAILY [facility] Stop: 03/23/17 08:59 Last Admin: 01/29/17 08:13 Dose: 25 mg Magnesium Hydroxide (Milk Of Magnesia) 30 ml PO Q6HR PRN PRN Reason: Constipation Stop: 03/22/17 20:00 Last Admin: 01/23/17 09:19 Dose: 30 ml Methimazole (Tapazole) 5 mg PO DAILY SYBIL Stop: 03/23/17 08:59 Last Admin: 01/29/17 08:11 Dose: 5 mg Mupirocin (Bactroban Oint) 1 appl NS BID SYBIL Stop: 01/31/17 12:59 Last Admin: 01/29/17 08:15 Dose: 1 appl Oxybutynin Chloride (Ditropan Xl) 5 mg PO HS SYBIL Stop: 03/23/17 20:59 Last Admin: 01/28/17 20:34 Dose: 5 mg Oxycodone/Acetaminophen (Percocet 5/325mg Oral Tab) 1 tab PO QID PRN PRN Reason: Pain (Severe) Last Admin: 01/29/17 08:09 Dose: 1 tab Pantoprazole Sodium (Protonix) 40 mg PO DAILY SYBIL Stop: 03/23/17 08:59 Last Admin: 01/29/17 08:10 Dose: 40 mg Potassium Chloride (Klor-Con) 10 meq PO DAILY SYBIL Stop: 03/23/17 08:59 Last Admin: 01/29/17 08:08 Dose: 10 meq Primidone (Mysoline) 50 mg PO HS SYBIL Stop: 03/22/17 20:59 Last Admin: 01/28/17 20:35 Dose: 50 mg Propranolol HCl (Inderal) 20 mg PO BID SYBIL Stop: 03/23/17 08:59 Last Admin: 01/29/17 08:14 Dose: 20 mg Ropinirole HCl (Requip) 1 mg PO HS SYBIL Stop: 03/22/17 20:59 Last Admin: 01/28/17 20:34 Dose: 1 mg Zolpidem Tartrate (Ambien) 5 mg PO HS PRN PRN Reason: Insomnia Stop: 03/22/17 19:55 Last Admin: 01/28/17 23:33 Dose: 5 mg General: Alert, No acute distress, Other (Confused, not oriented) HEENT: Atraumatic Neck: Supple Cardiovascular: Regular rate Abdomen: Bowel sounds, Soft Extremities: Other (edema) Neurological: Other (Unstable gait) Skin: Other (Warm and dry) Psych/Mental Status: Other (Confused, not oriented) Assessment/Plan - Assessment Assessment: Patint is awake, alert, calm, not oriented. Bilateral US shows no DVT and generalized arteriosclerosis. DX: increased in agitation, Dementia, Dyslipemia, Hyperthyroidism by history,. - Plan Plan: Continue with SNF meds. Under psychiatric care. US of both legs is requested. Nutritional Asmnt/Malnutr-PDOC - Dietary Evaluation Malnutrition Findings (Please click <Entered> for more info): Nutritional Asmnt/Malnutrition Start: 01/27/17 09: 38 Text: Status: Complete Freq: Document 01/27/17 09:38 GSUN (Rec: 01/27/17 09:51 GSUN [id number]) Nutritional Asmnt/Malnutrition Patient General Information Nutritional Screening Diagnosis Diagnosis Psychotic disorder NOS, depressive disorder NOS Pertinent Medical Hx/Surgical Hx CAD, dementia, psychosis, weakness Subjective Information Late entry. 86 year old female from SNF. Visited pt during meal time. Pt was talkative, appeared suspicious and very forgetful. Pt unable to recall past meals at [place] nor provide much meaningful nutrition information. Most teeth intact. Pt appeared overweight, no muscle fat wasting noted. Avg PO intake 75-100% of meals past 3 days, meeting nutritional needs. Spoke to chargeback analystJAE Lopez RN stated pt is able to self feed and walk, no nutritinoal concerns at this time. Current Diet Order/ Nutrition Support Regular Pertinent Medications Colace, Folate, Lasix, Cephulac, MOM, Protonix, Klor- Con Pertinent Labs 01/21: triglycerides 206H, cholesterol 219H Nutritional Hx/Data Height 1.65 m Height (Calculated Centimeters) 165.1 Current Weight (lbs) 65.771 kg Weight (Calculated Kilograms) 65.8 Weight (Calculated Grams) 12796.9 [place] Body Weight 125 Weight Status Approriate GI Symptoms Skin Integrity/Comment: Aram 19. Skin intact. Current %PO Good (75-100%) Estimated Nutritional Goals BEE in Kcals: Using Current wt Calories/Kcals/Kg CBW 145lb/65.9kg Kcals Calculated 1648-1977kcal (25-30kcal/kg) Protein: Using Current wt Protein Calculated 66g (1g/kg) Fluid: ml 1648-1977ml (1ml/kcal) Nutritional Problem 1. Problem Problem No nutritinoal problem at this time. Intervention/Recommendation Comments 1. Continue with current diet order. Avg PO intake is adeqaute. Expected Outcomes/Goals Expected Outcomes/Goals 1. PO intake continue to meet at least 75% of estimated nutritional needs.
[2017-01-29] MEDS: Oxybutynin Chloride 5 mg ER Tab PO SCH (20:49)
[2017-01-29] MEDS: Lactulose 10 Gm/15 mL 30mL UDC PO SCH (20:49)
--- NOTE | 2017-01-29 23:31 | Progress Notes ---
DATE: 01/29/2017 PSYCHIATRIC PROGRESS NOTE SUBJECTIVE: Staff was spoken to. The patient is interviewed. Mood is noted to be irritable. Affect is constricted. The patient is stating that she has been having lot of anxiety today. The patient is stating that she has been slept well. Coping skills are noted to be very poor. The patient has been having difficult time ____. The patient is stating that she could not bear it out why the patient has been having the patient's medications reviewed. The patient is confused and also receiving the Ativan on a p.r.n. basis and hence it is decided to discontinue the BuSpar and continue the patient with the duloxetine and Ativan and I encouraged the patient to verbalize the concerns rather than to act out. Please note that the patient's coping skills are noted to be still poor and the patient is not able to care for self. PLAN: To continue the patient with the supportive therapy. I encouraged the patient to verbalize the concerns rather than to act out. [facility]# [id number]
[2017-01-30] MEDS: Aspirin 81mg Chewable Tab PO SCH (08:43)
[2017-01-30] MEDS: Pantoprazole 40 mg EC Tab PO SCH (08:44)
[2017-01-30] MEDS: Potassium Chloride 10 mEq ER Tab PO SCH (08:44)
[2017-01-30] MEDS: Lactulose 10 Gm/15 mL 30mL UDC PO SCH (21:44)
[2017-01-30] MEDS: Oxybutynin Chloride 5 mg ER Tab PO SCH (21:45)
--- NOTE | 2017-01-31 01:36 | Progress Notes ---
DATE: 01/30/2017 SUBJECTIVE: Staff was spoken to. The patient is interviewed. Mood is noted to be irritable. Affect is constricted. The patient is reported to be having sundowning syndrome, more towards the end of the day. The patient at this time has been complaining of having pain in the knee area. Coping skills are noted to be still poor. The patient is currently on Cymbalta and has been able to tolerate the medications. No side effects to the medications are noted. ASSESSMENT: The patient is still having depression. PLAN: To continue the patient with the current medications and followup. JOB# [id number]
--- NOTE | 2017-01-31 09:08 | General Progress Note ---
Subjective - Review of Systems Service Date: 01/31/17 Subjective: I am fine Objective - Results Result Diagrams: 01/23/17 05:49 01/23/17 05:49 Recent Labs: Laboratory Last Values WBC 6.7 Th/cmm (4.8-10.8) 01/23/17 05:49 RBC 5.03 Mil/cmm (3.80-5.20) 01/23/17 05:49 Hgb 15.0 gm/dL (12-16) 01/23/17 05:49 Hct 45.6 % (41.0-60) 01/23/17 05:49 MCV 90.7 fl (81-100) 01/23/17 05:49 MCH 29.9 pg (27.0-31.0) 01/23/17 05:49 MCHC Differential 32.9 pg (28.0-36.0) 01/23/17 05:49 RDW 12.3 % (11.5-20.0) 01/23/17 05:49 Plt Count 196 Th/cmm (150-400) 01/23/17 05:49 MPV 8.2 fl 01/23/17 05:49 Neutrophils % 57.9 % (40.0-80.0) 01/23/17 05:49 Lymphocytes % 28.9 % (20.0-50.0) 01/23/17 05:49 Monocytes % 11.3 % (2.0-10.0) H 01/23/17 05:49 Eosinophils % 1.4 % (0.0-5.0) 01/23/17 05:49 Basophils % 0.5 % (0.0-2.0) 01/23/17 05:49 PT 9.9 SECONDS (9.5-11.5) 01/21/17 13:00 INR 0.95 (0.5-1.4) 01/21/17 13:00 Sodium 138 mEq/L (136-145) 01/23/17 05:49 Potassium 3.5 mEq/L (3.5-5.1) 01/23/17 05:49 Chloride 105 mEq/L (98-107) 01/23/17 05:49 Carbon Dioxide 26.5 mEq/L (21.0-31.0) 01/23/17 05:49 Anion Gap 10.0 (7.0-16.0) 01/23/17 05:49 BUN 15 mg/dL (7-25) 01/23/17 05:49 Creatinine 0.6 mg/dL (0.6-1.2) 01/23/17 05:49 Est GFR ( Amer) TNP 01/23/17 05:49 Est GFR (Non-Af Amer) TNP 01/23/17 05:49 BUN/Creatinine Ratio 25.0 01/23/17 05:49 Glucose 108 mg/dL (70-105) H 01/23/17 05:49 Calcium 9.2 mg/dL (8.6-10.3) 01/23/17 05:49 Total Bilirubin 0.8 mg/dL (0.3-1.0) 01/23/17 05:49 AST 20 U/L (13-39) 01/23/17 05:49 ALT 25 U/L (7-52) 01/23/17 05:49 Alkaline Phosphatase 107 U/L (34-104) H 01/23/17 05:49 Ammonia 49 umol/L (16-53) 01/23/17 05:49 Troponin I ng/mL (0.01-0.05) 01/21/17 13:00 Total Protein 6.9 gm/dL (6.0-8.3) 01/23/17 05:49 Albumin 3.9 gm/dL (3.7-5.3) 01/23/17 05:49 Globulin 3.0 gm/dL 01/23/17 05:49 Albumin/Globulin Ratio 1.3 (1.0-1.8) 01/23/17 05:49 Triglycerides 206 mg/dL (<150) H 01/21/17 13:00 Cholesterol 219 mg/dL (<200) H 01/21/17 13:00 LDL Cholesterol Direct 153 mg/dL (75-193) 01/21/17 13:00 HDL Cholesterol 56 mg/dL (23-92) 01/21/17 13:00 TSH 2.13 uIU/ml (0.34-5.60) 01/21/17 13:00 Urine Source CLEAN C 01/21/17 13:15 Urine Color YELLOW 01/21/17 13:15 Urine Clarity HAZY (CLEAR) 01/21/17 13:15 Urine pH 5.5 (4.6 - 8.0) 01/21/17 13:15 Ur Specific [place] 1.015 (1.005-1.030) 01/21/17 13:15 Urine Protein NEGATIVE mg/dL (NEGATIVE) 01/21/17 13:15 Urine Glucose (UA) NEGATIVE mg/dL (NEGATIVE) 01/21/17 13:15 Urine Ketones NEGATIVE mg/dL (NEGATIVE) 01/21/17 13:15 Urine Blood NEGATIVE (NEGATIVE) 01/21/17 13:15 Urine Nitrate NEGATIVE (NEGATIVE) 01/21/17 13:15 Urine Bilirubin NEGATIVE (NEGATIVE) 01/21/17 13:15 Urine Urobilinogen 0.2 E.U./dL (0.2 - 1.0) 01/21/17 13:15 Ur Leukocyte Esterase NEGATIVE (NEGATIVE) 01/21/17 13:15 Urine RBC 0-2 /hpf (0-5) 01/21/17 13:15 Urine WBC 2-5 /hpf (0-5) 01/21/17 13:15 Ur Epithelial Cells FEW /lpf (FEW) 01/21/17 13:15 Urine Bacteria OCCASIONAL /hpf (NONE SEEN) 01/21/17 13:15 - Physical Exam Vitals and I&O: Vital Signs Temp 97.4 F 01/31/17 06:37 Pulse 106 01/31/17 06:37 Resp 20 01/31/17 06:37 BP 135/72 01/31/17 06:37 Pulse Ox 93 01/31/17 06:37 Intake & Output 01/30/17 01/31/17 01/31/17 18:59 06:59 18:59 Intake Total 1600 180 Balance 1600 180 Intake: Oral 1600 180 Other: # Voids 4 3 # Bowel Movements 0 0 Active Medications: Current Medications Aspirin (Aspirin Chewable) 81 mg PO DAILY [facility] Stop: 03/23/17 08:59 Last Admin: 01/30/17 08:43 Dose: 81 mg Docusate Sodium (Colace) 100 mg PO DAILY [facility] Stop: 03/23/17 08:59 Last Admin: 01/30/17 08:43 Dose: 100 mg Duloxetine HCl (Cymbalta) 30 mg PO DAILY [facility] Stop: 03/23/17 08:59 Last Admin: 01/30/17 08:43 Dose: 30 mg Folic Acid (Folate) 1 mg PO DAILY [facility] Stop: 03/23/17 08:59 Last Admin: 01/30/17 08:44 Dose: 1 mg Furosemide (Lasix) 20 mg PO DAILY [facility] Stop: 03/23/17 08:59 Last Admin: 01/30/17 08:44 Dose: 20 mg Gabapentin (Neurontin) 600 mg PO TID [facility] Stop: 03/24/17 13:59 Last Admin: 01/30/17 21:45 Dose: 600 mg Lactulose (Cephulac) 10 gm PO HS [facility] Stop: 03/22/17 20:59 Last Admin: 01/30/17 21:44 Dose: 10 gm Lorazepam (Ativan) 0.5 mg PO Q12H PRN; Protocol PRN Reason: Anxiety Stop: 03/22/17 20:00 Losartan Potassium (Cozaar) 25 mg PO DAILY [facility] Stop: 03/23/17 08:59 Last Admin: 01/30/17 08:44 Dose: 25 mg Magnesium Hydroxide (Milk Of Magnesia) 30 ml PO Q6HR PRN PRN Reason: Constipation Stop: 03/22/17 20:00 Last Admin: 01/23/17 09:19 Dose: 30 ml Methimazole (Tapazole) 5 mg PO DAILY [facility] Stop: 03/23/17 08:59 Last Admin: 01/30/17 08:44 Dose: 5 mg Mupirocin (Bactroban Oint) 1 appl NS BID [facility] Stop: 01/31/17 12:59 Last Admin: 01/30/17 16:20 Dose: Not Given Oxybutynin Chloride (Ditropan Xl) 5 mg PO HS [facility] Stop: 03/23/17 20:59 Last Admin: 01/30/17 21:45 Dose: 5 mg Oxycodone/Acetaminophen (Percocet 5/325mg Oral Tab) 1 tab PO QID PRN PRN Reason: Pain (Severe) Last Admin: 01/29/17 08:09 Dose: 1 tab Pantoprazole Sodium (Protonix) 40 mg PO DAILY [facility] Stop: 03/23/17 08:59 Last Admin: 01/30/17 08:44 Dose: 40 mg Potassium Chloride (Klor-Con) 10 meq PO DAILY [facility] Stop: 03/23/17 08:59 Last Admin: 01/30/17 08:44 Dose: 10 meq Primidone (Mysoline) 50 mg PO HS [facility] Stop: 03/22/17 20:59 Last Admin: 01/30/17 21:45 Dose: 50 mg Propranolol HCl (Inderal) 20 mg PO BID [facility] Stop: 03/23/17 08:59 Last Admin: 01/30/17 16:21 Dose: Not Given Ropinirole HCl (Requip) 1 mg PO HS [facility] Stop: 03/22/17 20:59 Last Admin: 01/30/17 21:00 Dose: 1 mg Zolpidem Tartrate (Ambien) 5 mg PO HS PRN PRN Reason: Insomnia Stop: 03/22/17 19:55 Last Admin: 01/30/17 21:45 Dose: 5 mg General: Alert, No acute distress, Other (Confused, not oriented) HEENT: Atraumatic Neck: Supple Cardiovascular: Regular rate Abdomen: Bowel sounds, Soft Extremities: Other (edema) Neurological: Other (Unstable gait) Skin: Other (Warm and dry) Psych/Mental Status: Other (Confused, not oriented) Assessment/Plan - Assessment Assessment: Patint is awake, alert, calm, not oriented. Bilateral US shows no DVT and generalized arteriosclerosis. DX: increased in agitation, Dementia, Dyslipemia, Hyperthyroidism by history,. - Plan Plan: Continue with SNF meds. Under psychiatric care. US of both legs is requested. Nutritional Asmnt/Malnutr-PDOC - Dietary Evaluation Malnutrition Findings (Please click <Entered> for more info): Nutritional Asmnt/Malnutrition Start: 01/27/17 09: 38 Text: Status: Complete Freq: Document 01/27/17 09:38 GSUN (Rec: 01/27/17 09:51 GSUN [email or web address]) Nutritional Asmnt/Malnutrition Patient General Information Nutritional Screening Diagnosis Diagnosis Psychotic disorder NOS, depressive disorder NOS Pertinent Medical Hx/Surgical Hx CAD, dementia, psychosis, weakness Subjective Information Late entry. 86 year old female from SNF. Visited pt during meal time. Pt was talkative, appeared suspicious and very forgetful. Pt unable to recall past meals at [place] nor provide much meaningful nutrition information. Most teeth intact. Pt appeared overweight, no muscle fat wasting noted. Avg PO intake 75-100% of meals past 3 days, meeting nutritional needs. Spoke to charge entry specialistJAE Lopez RN stated pt is able to self feed and walk, no nutritinoal concerns at this time. Current Diet Order/ Nutrition Support Regular Pertinent Medications Colace, Folate, Lasix, Cephulac, MOM, Protonix, Klor- Con Pertinent Labs 01/21: triglycerides 206H, cholesterol 219H Nutritional Hx/Data Height 1.65 m Height (Calculated Centimeters) 165.1 Current Weight (lbs) 65.771 kg Weight (Calculated Kilograms) 65.8 Weight (Calculated Grams) 34862.9 [place] Body Weight 125 Weight Status Approriate GI Symptoms Skin Integrity/Comment: Aram 19. Skin intact. Current %PO Good (75-100%) Estimated Nutritional Goals BEE in Kcals: Using Current wt Calories/Kcals/Kg CBW 145lb/65.9kg Kcals Calculated 1648-1977kcal (25-30kcal/kg) Protein: Using Current wt Protein Calculated 66g (1g/kg) Fluid: ml 1648-1977ml (1ml/kcal) Nutritional Problem 1. Problem Problem No nutritinoal problem at this time. Intervention/Recommendation Comments 1. Continue with current diet order. Avg PO intake is adeqaute. Expected Outcomes/Goals Expected Outcomes/Goals 1. PO intake continue to meet at least 75% of estimated nutritional needs.
[2017-01-31] MEDS: APAP/Oxycodone 5/325mg Oral Tab PO PRN (12:53)
[2017-01-31] MEDS: Aspirin 81mg Chewable Tab PO SCH (14:33)
[2017-01-31] MEDS: Potassium Chloride 10 mEq ER Tab PO SCH (14:34)
[2017-01-31] MEDS: Pantoprazole 40 mg EC Tab PO SCH (14:34)
[2017-01-31] MEDS: Lactulose 10 Gm/15 mL 30mL UDC PO SCH (20:50)
[2017-01-31] MEDS: Oxybutynin Chloride 5 mg ER Tab PO SCH (20:51)
--- NOTE | 2017-01-31 21:51 | Progress Notes ---
DATE: 01/31/2017 Staff was spoken to. The patient is interviewed. Mood is noted to be anxious. The patient's insight and judgment noted to be improving. Impulse control seems to be fair. No side effects of the medications are noted. The patient has been on duloxetine and has been able to tolerate the medications except further sundowning around 3:00. The patient is not presenting with any threats to harm self or others and hence it is decided to discharge the patient today for followup on outpatient basis. JOB# [id number]
--- NOTE | 2017-02-01 08:41 | General Progress Note ---
Subjective - Review of Systems Service Date: 02/01/17 Subjective: I am fine Objective - Results Result Diagrams: 01/23/17 05:49 01/23/17 05:49 Recent Labs: Laboratory Last Values WBC 6.7 Th/cmm (4.8-10.8) 01/23/17 05:49 RBC 5.03 Mil/cmm (3.80-5.20) 01/23/17 05:49 Hgb 15.0 gm/dL (12-16) 01/23/17 05:49 Hct 45.6 % (41.0-60) 01/23/17 05:49 MCV 90.7 fl (81-100) 01/23/17 05:49 MCH 29.9 pg (27.0-31.0) 01/23/17 05:49 MCHC Differential 32.9 pg (28.0-36.0) 01/23/17 05:49 RDW 12.3 % (11.5-20.0) 01/23/17 05:49 Plt Count 196 Th/cmm (150-400) 01/23/17 05:49 MPV 8.2 fl 01/23/17 05:49 Neutrophils % 57.9 % (40.0-80.0) 01/23/17 05:49 Lymphocytes % 28.9 % (20.0-50.0) 01/23/17 05:49 Monocytes % 11.3 % (2.0-10.0) H 01/23/17 05:49 Eosinophils % 1.4 % (0.0-5.0) 01/23/17 05:49 Basophils % 0.5 % (0.0-2.0) 01/23/17 05:49 PT 9.9 SECONDS (9.5-11.5) 01/21/17 13:00 INR 0.95 (0.5-1.4) 01/21/17 13:00 Sodium 138 mEq/L (136-145) 01/23/17 05:49 Potassium 3.5 mEq/L (3.5-5.1) 01/23/17 05:49 Chloride 105 mEq/L (98-107) 01/23/17 05:49 Carbon Dioxide 26.5 mEq/L (21.0-31.0) 01/23/17 05:49 Anion Gap 10.0 (7.0-16.0) 01/23/17 05:49 BUN 15 mg/dL (7-25) 01/23/17 05:49 Creatinine 0.6 mg/dL (0.6-1.2) 01/23/17 05:49 Est GFR ( Amer) TNP 01/23/17 05:49 Est GFR (Non-Af Amer) TNP 01/23/17 05:49 BUN/Creatinine Ratio 25.0 01/23/17 05:49 Glucose 108 mg/dL (70-105) H 01/23/17 05:49 Calcium 9.2 mg/dL (8.6-10.3) 01/23/17 05:49 Total Bilirubin 0.8 mg/dL (0.3-1.0) 01/23/17 05:49 AST 20 U/L (13-39) 01/23/17 05:49 ALT 25 U/L (7-52) 01/23/17 05:49 Alkaline Phosphatase 107 U/L (34-104) H 01/23/17 05:49 Ammonia 49 umol/L (16-53) 01/23/17 05:49 Troponin I ng/mL (0.01-0.05) 01/21/17 13:00 Total Protein 6.9 gm/dL (6.0-8.3) 01/23/17 05:49 Albumin 3.9 gm/dL (3.7-5.3) 01/23/17 05:49 Globulin 3.0 gm/dL 01/23/17 05:49 Albumin/Globulin Ratio 1.3 (1.0-1.8) 01/23/17 05:49 Triglycerides 206 mg/dL (<150) H 01/21/17 13:00 Cholesterol 219 mg/dL (<200) H 01/21/17 13:00 LDL Cholesterol Direct 153 mg/dL (75-193) 01/21/17 13:00 HDL Cholesterol 56 mg/dL (23-92) 01/21/17 13:00 TSH 2.13 uIU/ml (0.34-5.60) 01/21/17 13:00 Urine Source CLEAN C 01/21/17 13:15 Urine Color YELLOW 01/21/17 13:15 Urine Clarity HAZY (CLEAR) 01/21/17 13:15 Urine pH 5.5 (4.6 - 8.0) 01/21/17 13:15 Ur Specific [place] 1.015 (1.005-1.030) 01/21/17 13:15 Urine Protein NEGATIVE mg/dL (NEGATIVE) 01/21/17 13:15 Urine Glucose (UA) NEGATIVE mg/dL (NEGATIVE) 01/21/17 13:15 Urine Ketones NEGATIVE mg/dL (NEGATIVE) 01/21/17 13:15 Urine Blood NEGATIVE (NEGATIVE) 01/21/17 13:15 Urine Nitrate NEGATIVE (NEGATIVE) 01/21/17 13:15 Urine Bilirubin NEGATIVE (NEGATIVE) 01/21/17 13:15 Urine Urobilinogen 0.2 E.U./dL (0.2 - 1.0) 01/21/17 13:15 Ur Leukocyte Esterase NEGATIVE (NEGATIVE) 01/21/17 13:15 Urine RBC 0-2 /hpf (0-5) 01/21/17 13:15 Urine WBC 2-5 /hpf (0-5) 01/21/17 13:15 Ur Epithelial Cells FEW /lpf (FEW) 01/21/17 13:15 Urine Bacteria OCCASIONAL /hpf (NONE SEEN) 01/21/17 13:15 - Physical Exam Vitals and I&O: Vital Signs Temp 98.3 F 02/01/17 06:14 Pulse 86 02/01/17 06:14 Resp 19 02/01/17 06:14 BP 166/81 02/01/17 06:14 Pulse Ox 94 02/01/17 06:14 Intake & Output 01/31/17 02/01/17 02/01/17 18:59 06:59 18:59 Intake Total 850 360 Balance 850 360 Intake: Oral 850 360 Other: # Voids 4 2 # Bowel Movements 1 0 Active Medications: Current Medications Aspirin (Aspirin Chewable) 81 mg PO DAILY [facility] Stop: 03/23/17 08:59 Last Admin: 01/31/17 14:33 Dose: Not Given Docusate Sodium (Colace) 100 mg PO DAILY [facility] Stop: 03/23/17 08:59 Last Admin: 01/31/17 14:33 Dose: Not Given Duloxetine HCl (Cymbalta) 30 mg PO DAILY [facility] Stop: 03/23/17 08:59 Last Admin: 01/31/17 14:34 Dose: Not Given Folic Acid (Folate) 1 mg PO DAILY [facility] Stop: 03/23/17 08:59 Last Admin: 01/31/17 14:34 Dose: Not Given Furosemide (Lasix) 20 mg PO DAILY [facility] Stop: 03/23/17 08:59 Last Admin: 01/31/17 14:34 Dose: Not Given Gabapentin (Neurontin) 600 mg PO TID [facility] Stop: 03/24/17 13:59 Last Admin: 01/31/17 20:51 Dose: Not Given Lactulose (Cephulac) 10 gm PO HS [facility] Stop: 03/22/17 20:59 Last Admin: 01/31/17 20:50 Dose: Not Given Lorazepam (Ativan) 0.5 mg PO Q12H PRN; Protocol PRN Reason: Anxiety Stop: 03/22/17 20:00 Losartan Potassium (Cozaar) 25 mg PO DAILY [facility] Stop: 03/23/17 08:59 Last Admin: 01/31/17 14:34 Dose: Not Given Magnesium Hydroxide (Milk Of Magnesia) 30 ml PO Q6HR PRN PRN Reason: Constipation Stop: 03/22/17 20:00 Last Admin: 01/23/17 09:19 Dose: 30 ml Methimazole (Tapazole) 5 mg PO DAILY [facility] Stop: 03/23/17 08:59 Last Admin: 01/31/17 14:34 Dose: Not Given Oxybutynin Chloride (Ditropan Xl) 5 mg PO HS [facility] Stop: 03/23/17 20:59 Last Admin: 01/31/17 20:51 Dose: Not Given Oxycodone/Acetaminophen (Percocet 5/325mg Oral Tab) 1 tab PO QID PRN PRN Reason: Pain (Severe) Last Admin: 01/31/17 12:53 Dose: 1 tab Pantoprazole Sodium (Protonix) 40 mg PO DAILY [facility] Stop: 03/23/17 08:59 Last Admin: 01/31/17 14:34 Dose: Not Given Potassium Chloride (Klor-Con) 10 meq PO DAILY [facility] Stop: 03/23/17 08:59 Last Admin: 01/31/17 14:34 Dose: Not Given Primidone (Mysoline) 50 mg PO HS [facility] Stop: 03/22/17 20:59 Last Admin: 09/25/17 20:51 Dose: Not Given Propranolol HCl (Inderal) 20 mg PO BID [facility] Stop: 03/23/17 08:59 Last Admin: 01/31/17 18:41 Dose: Not Given Ropinirole HCl (Requip) 1 mg PO HS [facility] Stop: 03/22/17 20:59 Last Admin: 01/31/17 20:51 Dose: Not Given Zolpidem Tartrate (Ambien) 5 mg PO HS PRN PRN Reason: Insomnia Stop: 03/22/17 19:55 Last Admin: 01/30/17 21:45 Dose: 5 mg General: Alert, No acute distress, Other (Confused, not oriented) HEENT: Atraumatic Neck: Supple Cardiovascular: Regular rate Abdomen: Bowel sounds, Soft Extremities: Other (edema) Neurological: Other (Unstable gait) Skin: Other (Warm and dry) Psych/Mental Status: Other (Confused, not oriented) Assessment/Plan - Assessment Assessment: Patint is awake, alert, calm, not oriented. Bilateral US shows no DVT and generalized arteriosclerosis. DX: increased in agitation, Dementia, Dyslipemia, Hyperthyroidism by history,. - Plan Plan: Continue with SNF meds. Under psychiatric care. US of both legs is requested. Nutritional Asmnt/Malnutr-PDOC - Dietary Evaluation Malnutrition Findings (Please click <Entered> for more info): Nutritional Asmnt/Malnutrition Start: 01/27/17 09: 38 Text: Status: Complete Freq: Document 01/27/17 09:38 GSUN (Rec: 01/27/17 09:51 GSUN [email or web address]) Nutritional Asmnt/Malnutrition Patient General Information Nutritional Screening Diagnosis Diagnosis Psychotic disorder NOS, depressive disorder NOS Pertinent Medical Hx/Surgical Hx CAD, dementia, psychosis, weakness Subjective Information Late entry. 86 year old female from SNF. Visited pt during meal time. Pt was talkative, appeared suspicious and very forgetful. Pt unable to recall past meals at [place] nor provide much meaningful nutrition information. Most teeth intact. Pt appeared overweight, no muscle fat wasting noted. Avg PO intake 75-100% of meals past 3 days, meeting nutritional needs. Spoke to charge operatorJAE Lopez RN stated pt is able to self feed and walk, no nutritinoal concerns at this time. Current Diet Order/ Nutrition Support Regular Pertinent Medications Colace, Folate, Lasix, Cephulac, MOM, Protonix, Klor- Con Pertinent Labs 01/21: triglycerides 206H, cholesterol 219H Nutritional Hx/Data Height 1.65 m Height (Calculated Centimeters) 165.1 Current Weight (lbs) 65.771 kg Weight (Calculated Kilograms) 65.8 Weight (Calculated Grams) 08283.9 [place] Body Weight 125 Weight Status Approriate GI Symptoms Skin Integrity/Comment: Aram 19. Skin intact. Current %PO Good (75-100%) Estimated Nutritional Goals BEE in Kcals: Using Current wt Calories/Kcals/Kg CBW 145lb/65.9kg Kcals Calculated 1648-1977kcal (25-30kcal/kg) Protein: Using Current wt Protein Calculated 66g (1g/kg) Fluid: ml 1648-1977ml (1ml/kcal) Nutritional Problem 1. Problem Problem No nutritinoal problem at this time. Intervention/Recommendation Comments 1. Continue with current diet order. Avg PO intake is adeqaute. Expected Outcomes/Goals Expected Outcomes/Goals 1. PO intake continue to meet at least 75% of estimated nutritional needs.
[2017-02-01] MEDS: Pantoprazole 40 mg EC Tab PO SCH (08:44)
[2017-02-01] MEDS: Potassium Chloride 10 mEq ER Tab PO SCH (08:46)
[2017-02-01] MEDS: Aspirin 81mg Chewable Tab PO SCH (08:46)
[2017-02-01] MEDS: APAP/Oxycodone 5/325mg Oral Tab PO PRN (16:50)
--- NOTE | 2017-02-02 01:58 | Discharge Summary ---
DATE OF DISCHARGE: 02/01/2017 IDENTIFYING DATA: The patient is an 86-year-old woman, resident of [facility], [place]. JUSTIFICATION OF HOSPITALIZATION: The patient is admitted here on a voluntary basis in view of his acute agitation. CHIEF COMPLAINT: "I don't know why they have to bring me in here." DIAGNOSES AT THE TIME OF ADMISSION: AXIS IA. Psychotic disorder, not otherwise specified. AXIS IB: Depressive disorder, not otherwise specified. AXIS II: None. AXIS III: As per Dr. Hinton. HISTORY OF PRESENT ILLNESS: Please refer 01/21/17 dictation done by me. HOSPITAL COURSE AND RESPONSE TO TREATMENT: The patient had the physical examination done by Dr. Hinton and the patient has been diagnosed to have dyslipidemia, hyperthyroidism and pain in both legs. Blood work that was done has been reviewed by Dr. Hinton. HOSPITAL COURSE AND RESPONSE TO TREATMENT: The patient has been closely monitored. I encouraged her to participate in the groups and verbalize the concerns. The patient has been continued on the [place] 5/325 q.6h. p.r.n. basis. The patient has been given the duloxetine 30 mg on a daily basis and gabapentin 600 mg 3 times a day. The patient has been encouraged to participate in the groups and verbalize the concerns. The patient has been given the zolpidem as p.r.n. With these medications, the patient started to do fairly well and hence the patient was finally discharged to be followed up on an outpatient basis. MENTAL STATUS EXAMINATION: At the time of discharge, the patient's mood is noted to be anxious. Affect is appropriate, not suicidal or homicidal. Insight and judgment noted to be fair. Impulse control is also noted to be fair. The patient has been willing to comply with the treatment and no major behavioral problems are noted at the time of the discharge and hence, the patient was discharged to be followed up on an outpatient basis by Dr. Reed at [facility] post-acute ____. CONDITION: At the time of discharge noted to be stable. DIAGNOSES AT THE TIME OF DISCHARGE: AXIS I. Depressive disorder, not otherwise specified. AXIS IB: Dementia and behavioral changes, secondary to it. AXIS II: None. AXIS III: As per Dr. Hinton. AFTERCARE PLAN: The patient is discharged to [facility] [place] for further followup. JOB# [id number]
== END 2017-02-01 17:25 | disposition home or self-care (01) | DRG 885 ==
LOC: ER 12:40 → GERO 15:32
PROVIDERS: ADMIT Psychiatry & Neurology Psychiatry; ATTEND Psychiatry & Neurology Psychiatry
DX: F29 Unspecified psychosis not due to a substance or known physiological condition (principal); F03.91 Unspecified dementia, unspecified severity, with behavioral disturbance; F32.9 Major depressive disorder, single episode, unspecified; I25.10 Atherosclerotic heart disease of native coronary artery without angina pectoris; M19.90 Unspecified osteoarthritis, unspecified site; E78.5 Hyperlipidemia, unspecified; Z88.5 Allergy status to narcotic agent; Z88.2 Allergy status to sulfonamides; Z88.8 Allergy status to other drugs, medicaments and biological substances; Z79.82 Long term (current) use of aspirin
CPT/HCPCS: 36415-UA; 71010-TC; 80053-TC; 80061-TC; 81001-TC; 82140-TC; 84443-TC; 84484-TC; 85025-TC; 85610-TC; 93005; 93925-TC; 93970-TC-50; Z7610